=== PATIENT | female | born 1940 | race Caucasian/White ===

== ENCOUNTER 2020-01-08 05:59 | Day surgery (SDC) | payer MEDICARE, BC ==
[2020-01-08] MEDS ORDERED: Lactated Ringers 1,000 ML IV SCH (06:30)
[2020-01-08] MEDS ORDERED: DIPRIVAN 200 MG/20 ML IV ONE (07:39)
[2020-01-08 08:34] VITALS: O2SAT 97
--- NOTE | 2020-01-08 08:48 | OP ---
SURGERY DATE/TIME: 01/08/2020 0740 PREOPERATIVE DIAGNOSIS: Positive Cologuard. 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 PROCEDURE: Colonoscopy. SURGEON: Dr. Mayen. ANESTHESIA: MAC. Medications given by anesthesia department. HISTORY: The patient is a 79 year-old white female who presents now with a positive Cologuard. The patient is felt to need to have endoscopic evaluation. She was apprised of the risks of the procedure including the risk of perforation, phlebitis, untoward reaction to medication, bleeding and missed lesions. The patient verbalized her understanding and desired to have the procedure performed. DESCRIPTION OF PROCEDURE: The patient was given the medications by the anesthesia department. She had continuous pulse oximetry, ECG monitoring, intermittent blood pressure monitoring and tidal CO2 monitoring during the examination. She was placed in the left lateral decubitus position. A digital rectal examination was performed and revealed normal anal sphincter tone and no masses. Small internal hemorrhoids were noted. The flexible Olympus pediatric colonoscope was used to intubate the rectum. A view of the colon was developed sequentially to the cecum. There were noted to be two very small areas of arteriovenous malformations and one that measured approximately 1 cm in diameter. No other mucosal lesions being encountered. The scope was removed from the patient who tolerated the procedure well and was sent back to OP recovery in good condition. The prep was noted to be good.
[2020-01-08 08:59] VITALS: BP 146/82; PULSE 73
== END 2020-01-08 08:57 | disposition home or self-care (01) ==
LOC: SDC 05:59
PROVIDERS: ATTEND Family Medicine
DX: R19.5 Other fecal abnormalities (principal); Q27.33 Arteriovenous malformation of digestive system vessel; Z79.899 Other long term (current) drug therapy
CPT/HCPCS: 94250; J2704

== ENCOUNTER 2020-03-17 05:35 | Inpatient (IN) | payer MEDICARE, BC ==
[2020-03-17] MEDS ORDERED: solu-MEDROL 125 MG IV ONE (05:52)
[2020-03-17] MEDS ORDERED: DUONEB 0.5-3 MG/3 ml Neb IH ONE ×2 (05:52→05:55)
[2020-03-17 06:01] LABS: A-aADO2 84; ABG HEMOGLOBIN 13.9; ABG POTASSIUM 4.2 (3.5-5.1); ARTERIAL BLD GAS O2 SATURATION 97.8 % (95-100); ARTERIAL BLOOD GAS BASE EXCESS -4.6 (-2.0-2.0); ARTERIAL BLOOD GAS FIO2 32 %; ARTERIAL BLOOD GAS PCO2 46 mmHg (35-45); ARTERIAL BLOOD GAS PO2 87 mmHg (75-100); ARTERIAL BLOOD GAS pH 7.29 (7.35-7.45); CARBOXYHEMOGLOBIN 2.9 % THgb (0.0-6.9); HCO3- 22.1 (22-28); HGB O2 SAT 94.3 g/dF (94-100); Lactic Acid 1.4 (0.4-2.0); Methhemoglobin 0.7 % (1.4-1.5); paO2 pAO1 0.51
[2020-03-17 06:02] LABS: Hematocrit 43.9 % (35-47); Mean Cell Volume 92.6 fl (78-100); Mean Corpuscular Hemoglobin 29.5 pg (26-32); Mean Corpuscular Hgb Concent. 31.9 g/dl (32-36); Red Blood Count 4.74 M/mm3 (4.1-5.4); Red Cell Distribution Width 13.6 % (11.5-14.0); White Blood Count 5.9 K/mm3 (4.0-10.5)
[2020-03-17 06:02] LABS: ABG SITE RIGHT BRACHIAL
--- NOTE | 2020-03-17 06:02 | ERPHSYRPT ---
- History of Present Illness Time Seen by Provider: 03/17/20 05:44 Source: patient, EMS Exam Limitations: no limitations Patient Subjective Stated Complaint: SOB Triage Nursing Assessment: pt to ED by EMS c/o SOB intermittently x 2 weeks. uses inhaler PRN, has not had any relief today. pt brought in on 15L NRB by EMS. EMS reports pt was 60% RA at home. pt does not normally wear O2. denies CP. A&Ox3. lung sounds diminished throughout, noted heart murmur, cap refil < 3 sec. Physician History: 79 years old female with history of COPD, tobacco abuse presented in the ER via EMS with worsening shortness of breath. Patient report having shortness of breath off-and-on for the last 2-1/2 weeks which got worse all of a sudden this morning. When EMS arrived her oxygen saturation was in 60s, placed on nonrebreather and brought in the ER. Patient currently satting around 98% on nonrebreather and her distress seems to be relieving. She denies cough or sputum production. Denies any fever or chills. Has some chest tightness and pressure but denies any lower extremity swellings. No history of CHF. Denies any sick contact. Timing/Duration: week(s) (2) Activities at Onset: rest Severity of Dyspnea-Max: severe Severity of Dyspnea-Current: moderate Possible Cause: unknown cause Modifying Factors: Improves With: albuterol inhaler, coughing Associated Symptoms: cough, chest pain/discomfort, wheezing, productive cough, No fever, No ankle swelling, No lightheadedness, No leg swelling, No muscle spasms feet, No painful breathing Allergies/Adverse Reactions: No Known Drug Allergies Allergy (Verified 03/17/20 07:18) Home Medications: Aspirin 81 mg PO DAILY 01/01/20 [History] Carvedilol 12.5 mg [Coreg 12.5 mg] 12.5 mg PO BID 01/01/20 [History] Dicyclomine HCl 20 mg [Bentyl 20 mg] 20 mg PO ACHS 01/01/20 [History] Lisinopril 10 mg [Zestril 10 MG] 10 mg PO DAILY 01/01/20 [History] Loratadine 10 mg [Claritin 10 mg] 10 mg PO DAILY 01/01/20 [History] Vitamin A 8,000 unit PO DAILY 01/01/20 [History] Albuterol Common Canister [Ventolin Common Canister] 2 puff IH Q4H PRN PRN 01/08/20 [History] Cholecalciferol (Vitamin D3) [Vitamin D] 3,000 unit PO DAILY 03/17/20 [ History] Glucosamine Sulfate Dipot Chlr [Glucosamine] 3,000 mg PO DAILY 03/17/20 [History ] Multivitamin W-Minerals/Lutein [Centrum Silver Tablet] 1 each PO DAILY 03/17/20 [History] Hx Tetanus, Diphtheria Vaccination/Date Given: No Hx Influenza Vaccination/Date Given: Yes Hx Pneumococcal Vaccination/Date Given: Yes Immunizations Up to Date: Yes Travel Risk - International Travel Have you traveled outside of the country in past 3 weeks: No Have you or anyone close to you been diagnosed with or: No Do your reside in a community with a known COVID-19 case?: Yes If Yes where:: [place] - Coronavirus Screening Has patient experienced Coronavirus symptoms: Yes Symptoms experienced: respiratory symptoms (i.e.Cought,shortness of breath) Date of fever onset:: 03/17/20 Date of respiratory symptoms onset:: 03/17/20 - Review of Systems Constitutional: Fatigue Eyes: No Symptoms Ears, Nose, & Throat: No Symptoms Respiratory: Dyspnea, Wheezing Cardiac: No Edema, No Palpitations Abdominal/Gastrointestinal: No Symptoms Genitourinary Symptoms: No Symptoms Musculoskeletal: No Symptoms Skin: No Symptoms Neurological: No Symptoms Psychological: No Symptoms Endocrine: No Symptoms Hematologic/Lymphatic: No Symptoms Immunological/Allergic: No Symptoms - Past Medical History Pertinent Past Medical History: Yes Neurological History: No Pertinent History ENT History: No Pertinent History Cardiac History: Hypertension, Other Respiratory History: COPD Endocrine Medical History: No Pertinent History Musculoskeletal History: No Pertinent History GI Medical History: No Pertinent History History: No Pertinent History Psycho-Social History: No Pertinent History Female Reproductive Disorders: No Pertinent History Other Medical History: heart murmur - Past Surgical History Past Surgical History: No - Social History Smoking Status: Current every day smoker How long have you smoked: 1/2 Drug Use: none Patient Lives Alone: Yes - Nursing Vital Signs Nursing Vital Signs: Initial Vital Signs Temperature 97.7 F 03/17/20 05:38 Pulse Rate 105 H 03/17/20 05:38 Respiratory Rate 28 H 03/17/20 05:38 Blood Pressure 169/110 03/17/20 05:38 O2 Sat by Pulse Oximetry 98 03/17/20 05:38 Pain Scale Pain Intensity 0 - Physical Exam General Appearance: mild distress Eye Exam: eyes nml inspection Ears, Nose, Throat Exam: hearing grossly normal, pharyngeal erythema Neck Exam: normal inspection, non-tender, supple, full range of motion Respiratory Exam: diminished breath sounds, accessory muscle use, crackles/rales , rhonchi, wheezing, No chest tenderness Cardiovascular/Chest Exam: regular rate/rhythm, tachycardia Abdominal/Gastrointestinal Exam: soft, No tenderness Extremity Exam: non-tender, normal range of motion, normal inspection Neurologic Exam: alert, oriented x 3, cooperative Skin Exam: normal color SpO2 Interpretation: ABG ordered, O2 applied SpO2: 99 O2 Delivery: Non-rebreather - Course Nursing assessment & vital signs reviewed: Yes EKG Interpreted by Me: RATE (103), Sinus Tach, Right Mittie Deviation, LAFB, Right Bundle Branch Block, Other Ordered Tests: Medication Summary Discontinued Medications Generic Name Dose Route Start Last Admin Trade Name Freq PRN Reason Stop Dose Admin Acetaminophen 650 mg 03/17/20 11:21 Tylenol 325 Mg PO 04/16/20 11:20 Q4H PRN PRN PAIN AND/OR FEVER Albuterol/Ipratropium 3 ml 03/17/20 05:52 03/17/20 06:00 Duoneb 0.5-3 Mg/3 Ml Neb IH 03/17/20 05:53 3 ml STAT ONE Administration Albuterol/Ipratropium Confirm 03/17/20 05:55 Duoneb 0.5-3 Mg/3 Ml Neb Administered 03/17/20 05:56 Dose 3 ml IH .STK-MED ONE Albuterol/Ipratropium 3 ml 03/17/20 11:21 03/17/20 13:05 Duoneb 0.5-3 Mg/3 Ml Neb IH 04/16/20 11:20 Not Given Q6HRT HODA Aspirin 325 mg 03/17/20 08:30 03/17/20 10:14 Ecotrin 325 Mg PO 04/16/20 08:29 325 mg DAILY HODA Administration Aspirin 81 mg 03/18/20 10:00 03/19/20 07:42 Ecotrin 81 Mg PO 04/17/20 09:59 81 mg DAILY HODA Administration Carvedilol 12.5 mg 03/17/20 14:30 03/19/20 07:43 Coreg 12.5 Mg PO 04/16/20 14:29 12.5 mg BID HODA Administration Dicyclomine HCl 20 mg 03/17/20 16:30 03/19/20 07:42 Bentyl 20 Mg PO 04/16/20 16:29 20 mg ACHS HODA Administration Diphenoxylate HCl/Atropine 1 tablet 03/18/20 19:58 03/19/20 08:27 Lomotil PO 04/17/20 19:57 1 tablet Q4H PRN PRN Administration DIARRHEA Famotidine 20 mg 03/17/20 11:21 03/19/20 07:42 Pepcid 20 Mg Vial IV 04/16/20 11:20 20 mg Q12HT HODA Administration Furosemide 40 mg 03/17/20 06:44 03/17/20 07:07 Lasix 40 Mg/4 Ml IV 03/17/20 06:45 40 mg STAT ONE Administration Furosemide Confirm 03/17/20 07:00 Lasix 40 Mg/4 Ml Administered 03/17/20 07:01 Dose 40 mg .ROUTE .STK-MED ONE Furosemide 40 mg 03/17/20 17:00 03/19/20 07:43 Lasix 40 Mg PO 04/16/20 16:59 40 mg BID DIURETIC HODA Administration Ceftriaxone Sodium/Dextrose 2 g in 50 mls @ 100 mls/hr 03/17/20 06:44 09:13 Rocephin 2 Gm-D5w 50ml Bag IV 03/17/20 07:13 Infused STAT STA Infusion Azithromycin 500 mg in 250 mls @ 250 mls/hr 03/17/20 06:44 03/17/20 09:13 Zithromax 500 Mg/ 250 Ml Nacl Premix IV 03/17/20 07:43 Infused STAT STA Infusion Azithromycin Confirm 03/17/20 07:00 Zithromax 500 Mg/ 250 Ml Nacl Premix Administered 03/17/20 07:01 Dose 500 mg in 250 mls @ ud IV .STK-MED ONE Ceftriaxone Sodium/Dextrose Confirm 03/17/20 07:00 Rocephin 2 Gm-D5w 50ml Bag Administered 03/17/20 07:01 Dose 2 g in 50 mls @ ud IV .STK-MED ONE Azithromycin 500 mg in 250 mls @ 250 mls/hr 03/17/20 11:21 03/18/20 07:41 Zithromax 500 Mg/ 250 Ml Nacl Premix IV 04/16/20 11:20 Not Given Q24H10 HODA Ceftriaxone Sodium/Dextrose 1 g in 50 mls @ 100 mls/hr 03/17/20 11:21 07:41 Rocephin 1 Gm-D5w 50 Ml Bag IV 04/16/20 11:20 Not Given Q24H10 HODA Insulin Human Lispro 0 unit 03/17/20 11:21 Humalog SQ 04/16/20 11:20 UD PRN HYPERGLYCEMIA Lisinopril 10 mg 03/17/20 14:30 03/19/20 07:42 Zestril 10 Mg PO 04/16/20 14:29 10 mg DAILY HODA Administration Loratadine 10 mg 03/18/20 10:00 03/19/20 07:43 Claritin 10 Mg PO 04/17/20 09:59 10 mg DAILY HODA Administration Lorazepam 1 mg 03/17/20 14:30 03/19/20 05:33 Ativan 1 Mg PO 04/16/20 14:29 Not Given Q8HT HODA Methylprednisolone Sodium Succinate 80 mg 03/17/20 05:52 03/17/20 06:14 Solu-Medrol 125 Mg IV 03/17/20 05:53 80 mg STAT ONE Administration Methylprednisolone Sodium Succinate Confirm 03/17/20 06:12 Solu-Medrol 125 Mg Administered 03/17/20 06:13 Dose 125 mg .ROUTE .STK-MED ONE Metoclopramide HCl 10 mg 03/17/20 07:30 03/17/20 10:14 Reglan 10 Mg/2 Ml IV 03/17/20 07:31 10 mg STAT ONE Administration Metoclopramide HCl Confirm 03/17/20 10:13 Reglan 10 Mg/2 Ml Administered 03/17/20 10:14 Dose 10 mg .ROUTE .STK-MED ONE Miscellaneous Information 0 each 03/17/20 13:00 Medication Intervention 04/16/20 12:59 .RN TO CHECK WITH PT HODA Nicotine 14 mg 03/17/20 19:15 03/18/20 16:00 Nicoderm Cq 14 Mg TOP 04/16/20 19:14 14 mg Q24H HODA Administration Nitroglycerin 1 gm 03/17/20 06:45 03/17/20 07:07 Nitro-Bid 2% Ud Packets TOP 03/17/20 06:46 1 gm STAT ONE Administration Nitroglycerin Confirm 03/17/20 07:00 Nitro-Bid 2% Ud Packets Administered 03/17/20 07:01 Dose 1 gm .ROUTE .STK-MED ONE Nitroglycerin Confirm 03/17/20 12:59 Nitrostat 0.4 Mg Tablet Administered 03/17/20 13:00 Dose 0.4 mg SL .STK-MED ONE Nitroglycerin 0.4 mg 03/17/20 14:23 03/17/20 15:32 Nitrostat 0.4 Mg Tablet SL 04/16/20 14:22 0.4 mg PRN PRN Administration Patient Own Med ( 2 each 03/17/20 11:33 Ventolin Mdi) IH 04/16/20 11:32 Q4HPRN PRN SHORTNESS OF BREATH/WHEEZING Potassium Chloride 10 meq 03/18/20 10:00 Klor Con 10 Meq PO 04/17/20 09:59 DAILY HODA Potassium Chloride 10 meq 03/17/20 17:15 03/19/20 07:42 Klor Con 10 Meq PO 04/16/20 17:14 10 meq TID HODA Administration Sodium Chloride 10 ml 03/17/20 22:00 03/19/20 07:43 Sodium Chloride 0.9% 10 Ml Flush Syringe IV 04/16/20 21:59 10 ml Q8HT HODA Administration Lab/Rad Data: Laboratory Result Diagrams 03/17/20 06:00 03/17/20 06:00 Laboratory Results 03/17/20 03/17/20 03/17/20 Range/Units 10:30 06:00 06:00 WBC (4.0-10.5) K/mm3 RBC (4.1-5.4) M/mm3 Hgb (12.0-16.0) gm/dl Hct (35-47) % MCV (78-100) fl MCH (26-32) pg MCHC (32-36) g/dl RDW (11.5-14.0) % Plt Count (150-450) K/mm3 MPV (7.5-11.0) fl Segmented Neutrophils (36.0-66.0) % Lymphocytes (Manual) (24-44) % Monocytes (Manual) (0.0-12.0) % Atypical Lymphocytes % Platelet Estimate (NORMAL) RBC Morphology Puncture Site pCO2 (35-45) mmHg pO2 (75-100) mmHg Base Excess (-2.0-2.0) O2 Saturation (94-100) g/dF ABG pH (7.35-7.45) ABG HCO3 (22-28) ABG O2 Sat (Measured) (95-100) % Simon Test A-a Gradient a/A Ratio Hemoglobin Carboxyhemoglobin (0.0-6.9) % THgb Methemoglobin (1.4-1.5) % Potassium 4.4 (3.5-5.1) Temperature C POC O2 Flow Rate % Sodium 139 (137-145) mmol/L Chloride 111 H (98-107) mmol/L Carbon Dioxide 21 L (22-30) mmol/L Anion Gap 11.7 (5-15) MEQ/L BUN 13 (7-17) mg/dL Creatinine 0.94 (0.52-1.04) mg/dL Estimated GFR > 60.0 ML/MIN Glucose 243 H (74-106) mg/dL Lactic Acid (0.4-2.0) Calcium 8.5 (8.4-10.2) mg/dL Magnesium 1.8 (1.6-2.3) mg/dL Total Bilirubin 0.50 (0.2-1.3) mg/dL AST 60 H (14-36) U/L ALT 39 H (0-35) U/L Alkaline Phosphatase 59 (38-126) U/L Troponin I 0.012 (0.000-0.034) ng/mL NT-Pro-B Natriuret Pep 5320 H (0-1800) pg/mL Serum Total Protein 5.8 L (6.3-8.2) g/dL Albumin 3.1 L (3.5-5.0) g/dL COVID-19 (CINDY) SEE SEPARATE REPORT 03/17/20 03/17/20 Range/Units 06:00 05:58 WBC 5.9 (4.0-10.5) K/mm3 RBC 4.74 (4.1-5.4) M/mm3 Hgb 14.0 (12.0-16.0) gm/dl Hct 43.9 (35-47) % MCV 92.6 (78-100) fl MCH 29.5 (26-32) pg MCHC 31.9 L (32-36) g/dl RDW 13.6 (11.5-14.0) % Plt Count 51 L (150-450) K/mm3 MPV 12.0 H (7.5-11.0) fl Segmented Neutrophils 58 (36.0-66.0) % Lymphocytes (Manual) 36 (24-44) % Monocytes (Manual) 3 (0.0-12.0) % Atypical Lymphocytes 3 % Platelet Estimate DECREASED (NORMAL) RBC Morphology NORMAL Puncture Site RIGHT BRACHIAL pCO2 46 H (35-45) mmHg pO2 87 (75-100) mmHg Base Excess -4.6 L (-2.0-2.0) O2 Saturation 94.3 (94-100) g/dF ABG pH 7.29 L (7.35-7.45) ABG HCO3 22.1 (22-28) ABG O2 Sat (Measured) 97.8 (95-100) % Simon Test NOT APPLICABLE A-a Gradient 84 a/A Ratio 0.51 Hemoglobin 13.9 Carboxyhemoglobin 2.9 (0.0-6.9) % THgb Methemoglobin 0.7 L (1.4-1.5) % Potassium 4.2 (3.5-5.1) Temperature 37.0 C POC O2 Flow Rate 32 % Sodium (137-145) mmol/L Chloride (98-107) mmol/L Carbon Dioxide (22-30) mmol/L Anion Gap (5-15) MEQ/L BUN (7-17) mg/dL Creatinine (0.52-1.04) mg/dL Estimated GFR ML/MIN Glucose (74-106) mg/dL Lactic Acid 1.4 (0.4-2.0) Calcium (8.4-10.2) mg/dL Magnesium (1.6-2.3) mg/dL Total Bilirubin (0.2-1.3) mg/dL AST (14-36) U/L ALT (0-35) U/L Alkaline Phosphatase (38-126) U/L Troponin I (0.000-0.034) ng/mL NT-Pro-B Natriuret Pep (0-1800) pg/mL Serum Total Protein (6.3-8.2) g/dL Albumin (3.5-5.0) g/dL COVID-19 (CINDY) - Progress Progress: improved, re-examined Air Movement: fair Progress Note: 03/17/20 06:58 79 years old is evaluated in the ER for respiratory distress. Patient is given DuoNeb and steroid, on reevaluation patient is still tachypneic and mildly tachycardic and using accessory muscles. She is placed on BiPAP. Chest x-ray showed congestion with right lower lobe pneumonia. She is given a dose of Lasix and Nitropaste along with antibiotics. Work-up showed normal white count and lactate, mildly acidotic with pH 7.29. I believe patient has a combination of CHF/COPD exacerbation and pneumonia. Discussed with Dr. Milan and patient is admitted. Blood Culture(s) Obtained: Yes Antibiotics given: Yes Will see patient in: hospital (full admit) Counseled pt/family regarding: lab results, diagnosis, rad results, smoking cessation - Departure Departure Disposition: In-patient Admission Clinical Impression: Suspected COVID-19 virus infection Heart failure Qualifiers: Heart failure type: unspecified Heart failure chronicity: acute Qualified Code( s): I50.9 - Heart failure, unspecified COPD (chronic obstructive pulmonary disease) Qualifiers: COPD type: unspecified COPD Qualified Code(s): J44.9 - Chronic obstructive pulmonary disease, unspecified Condition: Stable Critical Care Time: Yes Critical Care Time(excluding separately billable procedures): Critical 30-74 mins
[2020-03-17] MEDS ORDERED: solu-MEDROL 125 MG ONE (06:12)
[2020-03-17 06:20] LABS: ALBUMIN 3.1 g/dL (3.5-5.0); ALKALINE PHOSPHATASE 59 U/L (38-126); ANION GAP 11.7 MEQ/L (5-15); BLOOD UREA NITROGEN 13 mg/dL (7-17); CHLORIDE 111 mmol/L (98-107); Calcium 8.5 mg/dL (8.4-10.2); Carbon Dioxide 21 mmol/L (22-30); Creatinine 1 0.94 mg/dL (0.52-1.04); Glucose 243 mg/dL (74-106); MAGNESIUM 1.8 mg/dL (1.6-2.3); NT PRO BNP 5320 pg/mL (0-1800); Potassium 4.4 mmol/L (3.5-5.1); SGOT/AST 60 U/L (14-36); SGPT/ALT 39 U/L (0-35); SODIUM 139 mmol/L (137-145); Total Protein 5.8 g/dL (6.3-8.2)
[2020-03-17] MEDS ORDERED: Lasix 40 MG/4 ML IV ONE (06:44)
[2020-03-17] MEDS ORDERED: Zithromax 500 MG/ 250 ML NaCl Premix 500 MG/250 ML IVPB IV STA (06:44)
[2020-03-17] MEDS ORDERED: ROCEPHIN 2 Gm-D5w 50ML BAG** 2 G/50 ML IVPB IV STA (06:44)
[2020-03-17] MEDS ORDERED: NITRO-BID 2% UD PACKETS TOP ONE (06:45)
[2020-03-17] MEDS ORDERED: Zithromax 500 MG/ 250 ML NaCl Premix 500 MG/250 ML IVPB IV ONE (07:00)
[2020-03-17] MEDS ORDERED: ROCEPHIN 2 Gm-D5w 50ML BAG** 2 G/50 ML IVPB IV ONE (07:00)
[2020-03-17] MEDS ORDERED: Lasix 40 MG/4 ML ONE (07:00)
[2020-03-17] MEDS ORDERED: NITRO-BID 2% UD PACKETS ONE (07:00)
[2020-03-17 07:29] LABS: ATYPICAL LYMPHS 3 %; Lymphocytes 36 % (24-44); Monocyte 3 % (0.0-12.0); Neutrophils 58 % (36.0-66.0); Total Cells Counted 100
[2020-03-17] MEDS ORDERED: Reglan 10 MG/2 ML IV ONE (07:30)
[2020-03-17 07:31] LABS: Platelet Estimate DECREASED (NORMAL)
[2020-03-17 07:33] LABS: Platelet Count 51 K/mm3 (150-450)
[2020-03-17] MEDS ORDERED: Ecotrin 325 MG PO SCH (08:30)
--- NOTE | 2020-03-17 08:58 | XRAY ---
Indication: Short of breath. Comparison: None Portable chest demonstrates cardiomegaly, mild pulmonary edema, and small bibasilar effusions favoring cardiac decompensation. Mild right base infiltrate versus atelectasis, possible superimposed pneumonia. Bony thorax intact with mild osteopenia.
[2020-03-17] MEDS ORDERED: ECOTRIN 81 MG PO SCH (10:00)
[2020-03-17] MEDS ORDERED: Reglan 10 MG/2 ML ONE (10:13)
[2020-03-17] MEDS ORDERED: DUONEB 0.5-3 MG/3 ml Neb IH SCH (11:21)
[2020-03-17] MEDS ORDERED: HUMALOG SQ PRN (11:21)
[2020-03-17] MEDS ORDERED: Zithromax 500 MG/ 250 ML NaCl Premix 500 MG/250 ML IVPB IV SCH (11:21)
[2020-03-17] MEDS ORDERED: ROCEPHIN 1 Gm-D5w 50 ml Bag** 1 G/50 ML IVPB IV SCH (11:21)
[2020-03-17] MEDS ORDERED: TYLENOL 325 MG PO PRN (11:21)
[2020-03-17] MEDS ORDERED: PATIENT OWN MEDICATION IH PRN (11:33)
[2020-03-17] MEDS ORDERED: Nitrostat 0.4 MG Tablet SL ONE (12:59)
[2020-03-17] MEDS ORDERED: MEDICATION INTERVENTION MC SCH (13:00)
[2020-03-17] MEDS: Nitrostat 0.4 MG Tablet SL PRN ×5 (13:05→15:32)
[2020-03-17] MEDS: Zestril 10 MG PO SCH (14:35)
[2020-03-17] MEDS: COREG 12.5 MG PO SCH ×2 (14:35→23:20)
[2020-03-17] MEDS: Ativan 1 MG PO SCH ×2 (14:35→23:20)
[2020-03-17 15:04] LABS: ANION GAP 12.1 MEQ/L (5-15); MAGNESIUM 1.8 mg/dL (1.6-2.3); Potassium 3.3 mmol/L (3.5-5.1)
[2020-03-17] MEDS: Pepcid 20 MG VIAL IV SCH ×2 (15:18→23:19)
[2020-03-17] MEDS: BENTYL 20 MG PO SCH ×2 (17:10→23:20)
[2020-03-17] MEDS: Lasix 40 MG PO SCH (17:10)
[2020-03-17] MEDS: Klor Con 10 MEQ PO SCH ×2 (17:12→23:20)
[2020-03-17] MEDS: NICODERM CQ 14 MG TOP SCH (23:22)
[2020-03-17] MEDS: Sodium Chloride 0.9% 10 ML FLUSH Syringe IV SCH (23:45)
[2020-03-18 05:14] LABS: Absolute Neutrophil Ct (ANC) 7.55 (1.4-6.9); BASOPHIL % 0.1 % (0.0-0.4); Basophil (Absolute #) 0.01 (0-0.4); Eosinophil (Absolute #) 0 (0-0.5); Hematocrit 42.7 % (35-47); Hemoglobin 13.8 gm/dl (12.0-16.0); Lymphocyte (Absolute #) 2.24 (1.0-4.6); Lymphocytes % 21.1 % (24.0-44.0); Mean Cell Volume 91.2 fl (78-100); Mean Corpuscular Hemoglobin 29.5 pg (26-32); Mean Corpuscular Hgb Concent. 32.3 g/dl (32-36); Mean Platelet Volume 11.9 fl (7.5-11.0); Monocyte (Absolute #) 0.83 (0.0-1.3); Monocytes % 7.8 % (0.0-12.0); Platelet Count 42 K/mm3 (150-450); Red Blood Count 4.68 M/mm3 (4.1-5.4); Red Cell Distribution Width 13.4 % (11.5-14.0); White Blood Count 10.6 K/mm3 (4.0-10.5)
[2020-03-18 05:38] LABS: ALBUMIN 3.3 g/dL (3.5-5.0); BILIRUBIN,TOTAL 0.6 mg/dL (0.2-1.3); Calcium 8.9 mg/dL (8.4-10.2); Creatinine 1 0.96 mg/dL (0.52-1.04); Potassium 3.7 mmol/L (3.5-5.1)
[2020-03-18] MEDS: Sodium Chloride 0.9% 10 ML FLUSH Syringe IV SCH ×3 (05:57→21:13)
[2020-03-18] MEDS: Ativan 1 MG PO SCH ×4 (06:14→21:11)
[2020-03-18] MEDS: Pepcid 20 MG VIAL IV SCH ×2 (07:48→21:12)
[2020-03-18] MEDS: COREG 12.5 MG PO SCH ×2 (07:48→21:11)
[2020-03-18] MEDS: BENTYL 20 MG PO SCH ×4 (07:48→21:11)
[2020-03-18] MEDS: Lasix 40 MG PO SCH ×2 (07:48→16:00)
[2020-03-18] MEDS: Klor Con 10 MEQ PO SCH ×3 (07:48→21:11)
[2020-03-18] MEDS: Zestril 10 MG PO SCH (07:49)
[2020-03-18] MEDS: ECOTRIN 81 MG PO SCH (08:48)
[2020-03-18] MEDS: CLARITIN 10 MG PO SCH (08:48)
[2020-03-18 09:11] LABS: Slide Review 1 YES
[2020-03-18] MEDS ORDERED: VITAMIN A 8000 UNIT PO SCH (10:00)
[2020-03-18] MEDS ORDERED: Klor Con 10 MEQ PO SCH (10:00)
[2020-03-18] MEDS ORDERED: NON-FORMULARY ITEM (Aspirin [Aspirin] 81 MG) PO SCH (10:00)
--- NOTE | 2020-03-18 13:24 | HP ---
CHIEF COMPLAINT: Extreme shortness of breath. HISTORY OF PRESENT ILLNESS: The patient is a 79 year-old white female who lives with her son and . She has known chronic obstructive pulmonary disease. She went to bed feeling a little short of breath and woke up at 0100 hours and could not get her breath. She had no severe cough. Chest was bearing down on her. She has never had a feeling like this before and brought to the emergency room. At that time she was really hypoxic needing 100% oxygen and was put on multiple nebulizer treatments and BiPAP machine. She has been self-isolating very strictly and has not been exposed to any outside people. Everyone else at home is without acute illnesses. She has known history of heart disease but no heart failure. Apparently she sees Dr. Ross every three months for hypertension. While in the emergency room, they treated her for four to five hours with BiPAP, Lasix and O2 and finally brought her pO2 into the low 90's and got some relief. Currently she is smoking about a half pack a day after smoking for entire adult life. SOCIAL HISTORY: The patient is , has one son and two daughters. She worked here as an aide for many years. A very pleasant person. PHYSICAL EXAMINATION: VITAL SIGNS: Temperature 97F, pulse 100, respirations 20, blood pressure 160/100. O2 saturations now 98%. HEENT: Slightly hard of hearing. Sees okay. CHEST: Presently very short of breath, normally mildly short of breath. CVS: She is having some dull chest pain just heaviness that she does not usually have. ABDOMEN: Soft, no masses. No organomegaly. Not obese. EXTREMITIES: Thin. Feet are cool with good pulses. HOSPITAL COURSE: The patient was stabilized in the emergency room and brought to the COVID Unit to rule out COVID. Blood test was sent off. When I saw her she was still in some heart failure. She gets very anxious, having some runs of trigeminy and just PVC's. EKG's did not change the left anterior vesicular block, right bundle branch block. Troponins were just mildly elevated and went down with the second one. She diuresed over 4,000 cc over two days. She received one dose of Rocephin in the emergency room and that was disconnected. She got to the floor with really no signs of heart failure. She was placed on STAT Solu-Medrol however that was discontinued also as she really was not wheezing by the time I saw her. Her electrolytes were all normal because of the large diuresis. I checked her sodium, magnesium, potassium. The potassium was moderately low at 3.1 and we started oral potassium. IMPRESSION: 1) Acute heart failure. 2) Chronic obstructive pulmonary disease. 3) Possible COVID. PLAN: Continue diuresis, beta blockers, RADHA inhibitors, potassium and her home medicines and await the COVID test. The patient seems to be improving and her prognosis from the heart failure is good.
[2020-03-18] MEDS: NICODERM CQ 14 MG TOP SCH (16:00)
[2020-03-18] MEDS ORDERED: Lomotil PO PRN (19:58)
[2020-03-19] MEDS: Ativan 1 MG PO SCH (05:33)
[2020-03-19 05:48] LABS: Absolute Neutrophil Ct (ANC) 3.82 (1.4-6.9); BASOPHIL % 0.3 % (0.0-0.4); Basophil (Absolute #) 0.02 (0-0.4); Eosinophil % 0.8 % (0.00-5.0); Eosinophil (Absolute #) 0.06 (0-0.5); Hematocrit 43.6 % (35-47); Hemoglobin 14.2 gm/dl (12.0-16.0); Lymphocyte (Absolute #) 2.66 (1.0-4.6); Lymphocytes % 37.3 % (24.0-44.0); Mean Cell Volume 91.4 fl (78-100); Mean Corpuscular Hemoglobin 29.8 pg (26-32); Mean Corpuscular Hgb Concent. 32.6 g/dl (32-36); Mean Platelet Volume 12.2 fl (7.5-11.0); Monocyte (Absolute #) 0.58 (0.0-1.3); Monocytes % 8.1 % (0.0-12.0); Neutrophil % 53.5 % (36.0-66.0); Red Blood Count 4.77 M/mm3 (4.1-5.4); Red Cell Distribution Width 13.7 % (11.5-14.0); White Blood Count 7.1 K/mm3 (4.0-10.5)
[2020-03-19 05:54] LABS: ALBUMIN 3.2 g/dL (3.5-5.0); ALKALINE PHOSPHATASE 53 U/L (38-126); ANION GAP 9.1 MEQ/L (5-15); BLOOD UREA NITROGEN 21 mg/dL (7-17); CHLORIDE 105 mmol/L (98-107); Calcium 8.9 mg/dL (8.4-10.2); Carbon Dioxide 29 mmol/L (22-30); Creatinine 1 0.88 mg/dL (0.52-1.04); Glucose 95 mg/dL (74-106); Potassium 3.8 mmol/L (3.5-5.1); SGOT/AST 27 U/L (14-36); SGPT/ALT 29 U/L (0-35); SODIUM 139 mmol/L (137-145); Total Protein 5.9 g/dL (6.3-8.2)
[2020-03-19 06:39] LABS: Platelet Count 75 K/mm3 (150-450)
[2020-03-19 06:52] LABS: Slide Review 1 YES
[2020-03-19] MEDS: Pepcid 20 MG VIAL IV SCH (07:42)
[2020-03-19] MEDS: Klor Con 10 MEQ PO SCH (07:42)
[2020-03-19] MEDS: BENTYL 20 MG PO SCH (07:42)
[2020-03-19] MEDS: ECOTRIN 81 MG PO SCH (07:42)
[2020-03-19] MEDS: Zestril 10 MG PO SCH (07:42)
[2020-03-19] MEDS: Lasix 40 MG PO SCH (07:43)
[2020-03-19] MEDS: CLARITIN 10 MG PO SCH (07:43)
[2020-03-19] MEDS: Sodium Chloride 0.9% 10 ML FLUSH Syringe IV SCH (07:43)
[2020-03-19] MEDS: COREG 12.5 MG PO SCH (07:43)
[2020-03-19 07:53] VITALS: BP 128/65
[2020-03-19 10:18] VITALS: PULSE 97
--- NOTE | 2020-03-19 11:18 | DS ---
ADMISSION DIAGNOSES: 1) Congestive heart failure. 2) Respiratory distress. 3) COVID possible. 4) Chronic obstructive pulmonary disease. 5) Cough. DISCHARGE DIAGNOSIS: 1) ACUTE CONGESTIVE HEART FAILURE. 2) CORONARY ARTERY DISEASE. 3) CHRONIC OBSTRUCTIVE PULMONARY DISEASE. See dictated history and physical. HOSPITAL COURSE: The patient was very short of breath, waking up at 0100 hours much worse than usual. She has never had heart failure before. She denied any chest pain until she got to the COVID Unit. In the emergency room, she was stabilized with BiPAP, Lasix, oxygen and was given 1 gm of Rocephin for possible pneumonia. During her hospital stay really after being here for four hours she was less short of breath. Ativan for anxiety. She had some substernal pain but it was right after she got on the unit and the Ativan stopped that. Enzymes were initially very mildly elevated and then it came down to normal. She had some ventricular ectopy which straightened out with time. O2 saturations were 89% on room air all night. She diuresed 4,000 cc in two days. The second day she was weak but without severe shortness of breath and without any pain or cough. She was discharged home to continue on her home medicines plus Lasix 40 mg q.d., potassium 10 q.d. Follow up with her second time worker, Dr. Ross. I think she said she had an appointment with him soon. I am not for sure how he's doing his office with [facility]. Continue on inhaler and medicines including aspirin 81 mg q.d., carvedilol 12.5 mg b.i.d., vitamin D3 3,000 units q.d., Bentyl 20 a.c. and h.s. PRN irritable bowel, glucosamine 3,000 mg daily, lisinopril 10 mg q.d., loratadine 10 mg PRN, multiple vitamin q.d., vitamin A 8,000 q.d. supplement. PROGNOSIS: Good. She is to return for shortness of breath, fever or chest pain.
[2020-03-24 08:28] VITALS: O2SAT 99
== END 2020-03-19 11:13 | disposition home or self-care (01) | DRG 293 ==
LOC: ED 05:35 → MERGE 05:35 → EDBD 05:35 → MED SURG 10:39
PROVIDERS: ADMIT Family Medicine; ATTEND Family Medicine
DX: I11.0 Hypertensive heart disease with heart failure (principal); I50.9 Heart failure, unspecified; I25.10 Atherosclerotic heart disease of native coronary artery without angina pectoris; J44.9 Chronic obstructive pulmonary disease, unspecified; R05 Cough; F41.9 Anxiety disorder, unspecified; R53.1 Weakness; R09.02 Hypoxemia; F17.210 Nicotine dependence, cigarettes, uncomplicated; Z79.899 Other long term (current) drug therapy
CPT/HCPCS: 36415; 80051; 80053; 82375; 82803; 83036; 83605; 83735; 83880; 84484; 85025; 87040; 93005; 93041; 94640; 94762; 96365; 96368; 96374; 96375; 99291; U0002; 36000; 36600; 71045; 94002; 99285; J0456; J0696; J1940; J2930; A9270-GY

== ENCOUNTER 2024-12-15 09:39 | Emergency (ER) | payer MEDICARE ==
[2024-12-15 09:54] VITALS: TEMP 97.6
[2024-12-15] MEDS ORDERED: NORCO 5/325 MG ONE (11:02)
[2024-12-15] MEDS: NORCO 5/325 MG PO ONE (11:05)
[2024-12-15 11:15] VITALS: PULSE 55; RESP 16; O2SAT 98
--- NOTE | 2024-12-15 11:31 | ERPHSYRPT ---
- History of Present Illness Time Seen by Provider: 12/15/24 09:39 Source: patient, family Exam Limitations: no limitations Patient Subjective Stated Complaint: pt was stepping up on a step and grabbing a hand rail at the same time but missed the rail and it caused her to fall backwards and injured her left upper arm Triage Nursing Assessment: Pt brought to the ER by her son, hypertensive, rates pain as 10/10, pulses normal, skin n/w/d, bruising on left upper lateral arm, severe pain with movement, denies hitting head, denies LOC, denies N&V, doesn't appear to be in any distress Physician History: 84 years old female with history of hypertension, diabetes mellitus, COPD presented in the ER with complains of left shoulder pain after she tripped on a stool and fell on the left shoulder. Patient has bruising and difficulty movements of left shoulder since last night after she fell. No numbness tingling or weakness of left upper extremity. Did not hit her head, no loss of consciousness. No chest pain. Pain is exacerbated with minimal movements of the right shoulder and also has swelling of shoulder. Allergies/Adverse Reactions: No Known Drug Allergies Allergy (Verified 12/15/24 09:54) Home Medications: Aspirin 81 mg PO DAILY 01/01/20 [History] Carvedilol 12.5 mg [Coreg 12.5 mg] 12.5 mg PO BID 01/01/20 [History] Loratadine 10 mg [Claritin 10 mg] 10 mg PO DAILY 01/01/20 [History] Glucosamine Sulfate Dipot Chlr [Glucosamine] 3,000 mg PO DAILY 03/17/20 [History] Acetaminophen 325 mg [Tylenol 325 mg] 650 mg PO Q8H PRN PRN 12/15/24 [History] Furosemide 40 mg [Lasix 40 MG] 20 mg PO DAILY 12/15/24 [History] Metformin HCl 500 mg [Glucophage 500 MG] 500 mg PO BIDWM 12/15/24 [History] Rosuvastatin Calcium 10 mg PO DAILY 12/15/24 [History] Sacubitril/Valsartan [Entresto 24 mg-26 mg Tablet] 1 tab PO BID 12/15/24 [History] Vit C/E/Cuperic/Zinc/Lutein [Preservision Lutein Softgel] 1 each PO BID 12/15/24 [History] Hx Tetanus, Diphtheria Vaccination/Date Given: No Hx Influenza Vaccination/Date Given: Yes Hx Pneumococcal Vaccination/Date Given: Yes Travel Risk - International Travel Have you traveled outside of the country in past 3 weeks: No - Emerging Infectious Disease Are you exhibiting symptoms associated with any current EIDs: No - Review of Systems Constitutional: No Symptoms Ears, Nose, & Throat: No Symptoms Respiratory: No Symptoms Cardiac: No Symptoms Abdominal/Gastrointestinal: No Symptoms Musculoskeletal: Fall, Injury, Joint Pain, Joint Swelling Skin: No Symptoms Neurological: No Symptoms Endocrine: No Symptoms Hematologic/Lymphatic: No Symptoms - Past Medical History Pertinent Past Medical History: Yes Neurological History: No Pertinent History, TIA ENT History: No Pertinent History Cardiac History: Arrhythmia, High Cholesterol, Hypertension, Other Respiratory History: COPD Endocrine Medical History: No Pertinent History Musculoskeletal History: No Pertinent History GI Medical History: No Pertinent History History: No Pertinent History Psycho-Social History: No Pertinent History Female Reproductive Disorders: No Pertinent History Other Medical History: heart murmur - Past Surgical History Past Surgical History: Yes Neuro Surgical History: No Pertinent History Cardiac: Cardiac Catheterization Respiratory: No Pertinent History Gastrointestinal: No Pertinent History Genitourinary: No Pertinent History Musculoskeletal: No Pertinent History Female Surgical History: No Pertinent History - Social History Smoking Status: Former smoker Exposure to second hand smoke: No Drug Use: none - Social Determinants of Health Will the patient participate in the screening: Yes Do you worry about a steady place to live?: No Do you have any problems with any of the following?: No known problems In the past 12 months,have you had to go without utilities?: No Transportation Issues: No Has anyone in your support network made you feel unsafe?: No Have you or anyone in your house had to go w/o enough food: No - Nursing Vital Signs Nursing Vital Signs: Initial Vital Signs Temperature 97.6 F 12/15/24 09:47 Pulse Rate 79 12/15/24 09:47 Blood Pressure 157/61 12/15/24 09:47 O2 Sat by Pulse Oximetry 97 12/15/24 09:47 Pain Scale Pain Intensity 10 - Physical Exam General Appearance: no apparent distress Eyes, Ears, Nose, Throat Exam: normal ENT inspection Neck Exam: normal inspection, non-tender, supple, full range of motion Cardiovascular/Respiratory Exam: chest non-tender, normal breath sounds, regular rate/rhythm Abdominal Exam: non-tender, soft Back Exam: normal inspection, normal range of motion Shoulder Exam: bone tenderness, limited ROM, pain, soft tissue tenderness Elbow/Forearm Exam: normal inspection, non-tender, no evidence of injury Wrist Exam: normal inspection, non-tender, no evidence of injury, normal ROM Hand Exam: normal inspection, non-tender, no evidence of injury, normal ROM Neuro/Tendon Exam: normal sensation, normal motor functions Mental Status Exam: alert, oriented x 3, cooperative Skin Exam: normal color SpO2 Interpretation: normal SpO2: 98 O2 Delivery: Room Air Ordered Tests: Active Orders 24 hr Category Date Time Status SHOULDER Stat Exams 12/15/24 10:02 Taken Medication Summary Discontinued Medications Generic Name Dose Route Start Last Admin Trade Name Jessica PRN Reason Stop Dose Admin Hydrocodone Bitart/Acetaminophen 1 tab 12/15/24 10:02 12/15/24 11:05 Hydrocodone/Apap 5/325 1 Tab Tablet PO 12/15/24 10:03 1 tab STAT ONE Administration Hydrocodone Bitart/Acetaminophen Confirm 12/15/24 11:02 Hydrocodone/Apap 5/325 1 Tab Tablet Administered 12/15/24 11:03 Dose 1 tab .ROUTE .STK-MED ONE - Progress Progress: improved, pain not gone completely, re-examined Progress Note: 12/15/24 11:24 84-year-old is evaluated in the ER for fall with injury to the left shoulder. Patient fell off of a small step. Did not hit her head, no LOC. No injury anywhere else. Has tenderness swelling left shoulder with restricted range of motion. I have given her [place] for symptomatic relief, x-ray shoulder showed impacted surgical neck fracture with no dislocation reviewed by me, official report is pending, I have shared imaging and history with Dr. Chinchilla, recommended sling application and outpatient follow-up with orthopedics on Tuesday. Distant sling/shoulder immobilizer. I have shared the results of workup with patient and family and plan of treatment and outpatient follow-up which they seem understanding. Stable for discharge. Discussed with Dr.: Other (Dr. Chinchilla orthopedics) Counseled pt/family regarding: diagnosis, need for follow-up, rad results Medical Desision Making - Independent Historian Additional History obtained from: Child - Discussion of managment Care discussed with:: specialist ([facility]) Reviewed:: Test results Agreed on:: Treatment plan, need for follow-up Will see patient: In office - Diagnostic Testing Diagnostic test were ordered, analyzed, and reviewed by me: Yes Radiological Interpretation: Interpreted by me, Reviewed by me - Risk of complications The pt has a mod risk of morbidity or mortality based on: Need for prescription drug management - Departure Departure Disposition: Home Clinical Impression: Shoulder fracture, left Condition: Stable Critical Care Time: No Referrals: ROD HOLLINGSWORTH [Primary Care Provider] - Follow up with PCP 1 day FRANCHESKA CHINCHILLA DO [ACTIVE STAFF] - Follow up/PCP as directed (Tuesday for reevaluation) Instructions: Shoulder Fracture (DC) Additional Instructions: Avoid exertional activities. Take pain medications as needed. Follow-up with orthopedics for reevaluation on Tuesday. Return to ER for any worsening. Prescriptions: Hydrocodone/Acetaminophen [Hydrocodone-Acetamin 5-325 mg] 1 tab PO Q6HPRN PRN 3 Days #12 tablet MDD 4 PRN Reason: Pain
[2024-12-15 11:32] VITALS: BP 163/76
--- NOTE | 2024-12-15 23:33 | XRAY ---
Indication: Status post fall. Comparison: None 3 view left shoulder demonstrates impacted comminuted humeral head/neck fracture with effusion. Elsewhere osteopenia, mild multilevel thoracic degenerative spondylosis, and aortic calcifications.
== END 2024-12-15 11:48 | disposition home or self-care (01) ==
LOC: ED 09:39
DX: S42.212A Unspecified displaced fracture of surgical neck of left humerus, initial encounter for closed fracture (principal); W01.0XXA Fall on same level from slipping, tripping and stumbling without subsequent striking against object, initial encounter; E78.5 Hyperlipidemia, unspecified; I10 Essential (primary) hypertension; Z79.891 Long term (current) use of opiate analgesic; Z79.84 Long term (current) use of oral hypoglycemic drugs; Z79.899 Other long term (current) drug therapy
CPT/HCPCS: 73030; 99283; L3650; A9270-GY

== ENCOUNTER 2025-03-02 07:25 | Observation (INO) | payer MEDICARE ==
--- NOTE | 2025-03-02 07:41 | ERPHSYRPT ---
- History of Present Illness Time Seen by Provider: 03/02/25 07:40 Source: patient, EMS, old records Exam Limitations: no limitations Physician History: This is an 84-year-old white female patient of Dr. Mayen who presents to the emergency department transported by the paramedics secondary to waking up at approximately 515 this morning sweating and feeling very dizzy. She denies chest pain and she denies shortness of breath. The paramedics arrived and found the patient to be in atrial fibrillation with RVR and a heart rate of 180 bpm and they provided the patient with 10 mg of intravenous Cardizem. Patient responded to this IV Cardizem but arrived to the emergency department with a heart rate of 150 bpm. On my evaluation of her in the emergency department, her heart rate was 88 bpm it in atrial fibrillation pattern. Patient has had history of rheumatic fever in the past which has globally affected her heart per her report. Patient's book coverer is Dr. Ross. Patient has a history of hypertension on Coreg medication. She has a history of diabetes, hyperlipidemia, TIAs, and CHF. She is taking Entresto and furosemide for the CHF condition. I interpreted/evaluated an old twelve-lead EKG dated 03/17/2020. On that twelve-lead EKG it shows sinus tachycardia with PVCs, right bundle branch block and left anterior fascicular block. The QTc was 573. Timing/Duration: today Severity: mild Baseline/Normal Cognition: alert oriented x 3 Current Cognition: alert oriented x 3 Baseline Gait: walks w/o assistance Associated Symptoms: other (She at home but 100% better now with just mild lightheadedness), No confusion, No loss of consciousness, No nausea, No vomiting, No weakness, No seizures, No slurred speech, No vision changes, No chest pain, No headache Allergies/Adverse Reactions: No Known Drug Allergies Allergy (Verified 03/02/25 07:29) Home Medications: Aspirin 81 mg PO DAILY 01/01/20 [History] Carvedilol 12.5 mg [Coreg 12.5 mg] 12.5 mg PO BID 01/01/20 [History] Loratadine 10 mg [Claritin 10 mg] 10 mg PO DAILY 01/01/20 [History] Glucosamine Sulfate Dipot Chlr [Glucosamine] 1,000 mg PO BID 03/17/20 [History] Acetaminophen 325 mg [Tylenol 325 mg] 650 mg PO Q8H PRN PRN 12/15/24 [History] Metformin HCl 500 mg [Glucophage 500 MG] 500 mg PO BIDWM 12/15/24 [History] Rosuvastatin Calcium 10 mg PO DAILY 12/15/24 [History] Sacubitril/Valsartan [Entresto 24 mg-26 mg Tablet] 1 tab PO BID 12/15/24 [History] Vit C/E/Cuperic/Zinc/Lutein [Preservision Lutein Softgel] 1 each PO BID 12/15/24 [History] Furosemide [Lasix] See Rx Instructions .ROUTE .COMPLEX 03/02/25 [History] Ubidecarenone [Co Q-10] 200 mg PO DAILY 03/02/25 [History] Hx Tetanus, Diphtheria Vaccination/Date Given: No Hx Influenza Vaccination/Date Given: Yes Hx Pneumococcal Vaccination/Date Given: Yes Travel Risk - International Travel Have you traveled outside of the country in past 3 weeks: No - Emerging Infectious Disease Are you exhibiting symptoms associated with any current EIDs: No - Review of Systems Constitutional: No Symptoms Eyes: No Symptoms Ears, Nose, & Throat: No Symptoms Respiratory: No Symptoms Cardiac: No Symptoms Abdominal/Gastrointestinal: No Symptoms Genitourinary Symptoms: No Symptoms Musculoskeletal: No Symptoms Skin: No Symptoms Neurological: Dizziness Psychological: No Symptoms Endocrine: Excessive Sweating (Earlier this morning. The symptoms have improved/resolved) Hematologic/Lymphatic: No Symptoms Immunological/Allergic: No Symptoms All Other Systems: Reviewed and Negative - Past Medical History Pertinent Past Medical History: Yes Neurological History: TIA ENT History: No Pertinent History Cardiac History: Arrhythmia, High Cholesterol, Hypertension, Other Respiratory History: COPD Endocrine Medical History: Diabetes Type II Musculoskeletal History: Arthritis, Fractures GI Medical History: No Pertinent History History: No Pertinent History Psycho-Social History: No Pertinent History Female Reproductive Disorders: No Pertinent History Other Medical History: heart murmur, book coverer: Dr. Ross - Past Surgical History Past Surgical History: Yes Neuro Surgical History: No Pertinent History Cardiac: Cardiac Catheterization Respiratory: No Pertinent History Gastrointestinal: No Pertinent History Genitourinary: No Pertinent History Musculoskeletal: No Pertinent History Female Surgical History: No Pertinent History - Social History Smoking Status: Former smoker Exposure to second hand smoke: No Drug Use: none - Social Determinants of Health Will the patient participate in the screening: Yes Do you worry about a steady place to live?: No In the past 12 months,have you had to go without utilities?: No Transportation Issues: No Has anyone in your support network made you feel unsafe?: No Have you or anyone in your house had to go w/o enough food: No - Nursing Vital Signs Nursing Vital Signs: Initial Vital Signs Temperature 97 F 03/02/25 07:30 Pulse Rate 150 H 03/02/25 07:30 Respiratory Rate 19 03/02/25 07:30 Blood Pressure 125/55 03/02/25 07:30 O2 Sat by Pulse Oximetry 98 03/02/25 07:30 Pain Scale Pain Intensity 0 - [place] Coma Scale Best Eye Response ([place]): (4) open spontaneously Best Verbal Response ([place]): (5) oriented Best Motor Response ([place]): (6) obeys commands [place] Total: 15 - Physical Exam General Appearance: no apparent distress, alert Eye Exam: bilateral eye: normal inspection, PERRL, EOMI Ears, Nose, Throat Exam: normal ENT inspection, TMs normal, moist mucous membranes Neck Exam: normal inspection, non-tender, supple, full range of motion Respiratory: normal breath sounds, chest tenderness, lungs clear, respiratory distress, airway intact Cardiovascular: normal peripheral pulses, irregular Gastrointestinal: soft, normal bowel sounds, No tenderness Pelvic Exam: not done Rectal Exam: not done Back Exam: normal inspection, normal range of motion Extremity Exam: normal inspection, normal range of motion, pelvis stable Mental Status: alert, oriented x 3, cooperative card tender Exam: normal hearing, normal speech, PERRL Motor/Sensory: no motor deficit, no sensory deficit, no pronator drift Skin Exam: normal color, warm, dry SpO2 Interpretation: normal SpO2: 98 O2 Delivery: Room Air - Course Nursing assessment & vital signs reviewed: Yes EKG Interpreted by Me: RATE (116), A-fib, NORMAL AXIS, NORMAL INTERVALS, NORMAL QRS, Other (QTc is 451. No evidence of acute ischemia on this twelve-lead EKG.) Ordered Tests: Active Orders 24 hr Category Date Time Status Business Mail Entry Clerk STAT Care 03/02/25 07:52 Active EKG-ER Only STAT Care 03/02/25 07:52 Active EKG-ER Only STAT Care 03/02/25 08:00 Active IV Insertion STAT Care 03/02/25 07:52 Active HEAD WITHOUT CONTRAST [CT] Stat Exams 03/02/25 07:52 Completed CBC W DIFF Stat Lab 03/02/25 07:50 Completed CMP Stat Lab 03/02/25 07:50 Completed MAGNESIUM Stat Lab 03/02/25 07:50 Completed TROPONIN Q4H Lab 03/02/25 07:50 Completed TROPONIN Q4H Lab 03/02/25 12:00 Ordered TROPONIN Q4H Lab 03/02/25 16:00 Ordered UA W/RFX UR CULTURE Stat Lab 03/02/25 09:06 Completed Medication Summary Generic Name Dose Route Start Last Admin Trade Name Freq PRN Reason Stop Dose Admin Sodium Chloride 500 mls @ 50 mls/hr 03/02/25 09:45 Sodium Chloride 0.9% 500 Ml IV 04/01/25 09:44 .Q10H HODA Discontinued Medications Generic Name Dose Route Start Last Admin Trade Name Freq PRN Reason Stop Dose Admin Potassium Chloride 20 meq 03/02/25 08:30 03/02/25 08:33 Potassium Chloride Tab 10 Meq Tab PO 03/02/25 08:31 20 meq STAT ONE Administration Potassium Chloride Confirm 03/02/25 08:33 Potassium Chloride Tab 10 Meq Tab Administered 03/02/25 08:34 Dose 20 meq .ROUTE .STK-MED ONE Lab/Rad Data: Laboratory Result Diagrams 03/02/25 07:50 03/02/25 07:50 Laboratory Results 03/02/25 03/02/25 03/02/25 Range/Units 09:06 07:50 07:50 WBC (3.98-10.04) x10^3/uL RBC (3.93-5.22) x10^6/uL Hgb (11.2-15.7) g/dL Hct (34.1-44.9) % MCV (79.4-94.8) fL MCH (25.6-32.2) pg MCHC (32.2-35.5) g/dL RDW (11.7-14.4) % Plt Count (182-369) x10^3/uL MPV (9.4-12.3) fL Gran % (34.0-71.1) % Immature Gran % (Auto) (0.001-0.429) % Nucleat RBC Rel Count (0.00-0.2) % Eos # (Auto) (0.04-0.36) x10^3/uL Immature Gran # (Auto) (0.001-0.031) x10^3u/L Absolute Lymphs (auto) (1.18-3.74) x10^3/uL Absolute Monos (auto) (0.24-0.86) x10^3/uL Absolute Nucleated RBC (0.00-0.012) x10^3u/L Lymphocytes % (19.3-51.7) % Monocytes % (4.7-12.5) % Eosinophils % (0.7-5.8) % Basophils % (0.1-1.2) % Absolute Granulocytes (1.56-6.13) x10^3/uL Basophils # (0.01-0.08) x10^3/uL Sodium 143 (135-145) mmol/L Potassium 3.1 L (3.5-5.1) mmol/L Chloride 104 (98-107) mmol/L Carbon Dioxide 24 (22-30) mmol/L Anion Gap 18.0 H (5-15) MEQ/L BUN 16 (7-17) mg/dL Creatinine 0.84 (0.52-1.04) mg/dL Estimated GFR 68.9 ML/MIN Glucose 122 H (74-106) mg/dL Calcium 9.6 (8.4-10.2) mg/dL Magnesium 1.6 (1.6-2.3) mg/dL Total Bilirubin 0.60 (0.2-1.3) mg/dL AST 30 (14-36) U/L ALT 15 (0-35) U/L Alkaline Phosphatase 68 (38-126) U/L Troponin I 0.021 (0.000-0.033) ng/mL Serum Total Protein 6.8 (6.3-8.2) g/dL Albumin 4.3 (3.5-5.0) g/dL Urine Color Yellow (Yellow) Urine Appearance Clear (Clear) Urine pH 6.0 (4.6-8.0) Ur Specific [place] 1.015 (1.005-1.030) Urine Protein 30 (Negative) Urine Glucose (UA) Negative (Negative) mg/dL Urine Ketones 15 A (Negative) Urine Blood Small A (Negative) Urine Nitrite Negative (Negative) Urine Bilirubin Negative (Negative) Urine Urobilinogen 1.0 A (0.2) mg/dL Ur Leukocyte Esterase Negative (Negative) U Hyaline Cast (Auto) 3-5 A (0-2) /LPF Urine Microscopic RBC 6-10 A (0-5) /HPF Urine Microscopic WBC 0-2 (0-5) /HPF Ur Epithelial Cells None Seen (None Seen) /HPF Urine Bacteria None Seen (None Seen) /HPF Urine Culture Reflexed NO (NO) 03/02/25 Range/Units 07:50 WBC 5.6 (3.98-10.04) x10^3/uL RBC 4.71 (3.93-5.22) x10^6/uL Hgb 13.4 (11.2-15.7) g/dL Hct 42.7 (34.1-44.9) % MCV 90.7 (79.4-94.8) fL MCH 28.5 (25.6-32.2) pg MCHC 31.4 L (32.2-35.5) g/dL RDW 12.6 (11.7-14.4) % Plt Count 124 L (182-369) x10^3/uL MPV 12.4 H (9.4-12.3) fL Gran % 63.8 (34.0-71.1) % Immature Gran % (Auto) 0.2 (0.001-0.429) % Nucleat RBC Rel Count 0.0 (0.00-0.2) % Eos # (Auto) 0.09 (0.04-0.36) x10^3/uL Immature Gran # (Auto) 0.01 (0.001-0.031) x10^3u/L Absolute Lymphs (auto) 1.46 (1.18-3.74) x10^3/uL Absolute Monos (auto) 0.42 (0.24-0.86) x10^3/uL Absolute Nucleated RBC 0.00 (0.00-0.012) x10^3u/L Lymphocytes % 26.2 (19.3-51.7) % Monocytes % 7.5 (4.7-12.5) % Eosinophils % 1.6 (0.7-5.8) % Basophils % 0.7 (0.1-1.2) % Absolute Granulocytes 3.55 (1.56-6.13) x10^3/uL Basophils # 0.04 (0.01-0.08) x10^3/uL Sodium (135-145) mmol/L Potassium (3.5-5.1) mmol/L Chloride (98-107) mmol/L Carbon Dioxide (22-30) mmol/L Anion Gap (5-15) MEQ/L BUN (7-17) mg/dL Creatinine (0.52-1.04) mg/dL Estimated GFR ML/MIN Glucose (74-106) mg/dL Calcium (8.4-10.2) mg/dL Magnesium (1.6-2.3) mg/dL Total Bilirubin (0.2-1.3) mg/dL AST (14-36) U/L ALT (0-35) U/L Alkaline Phosphatase (38-126) U/L Troponin I (0.000-0.033) ng/mL Serum Total Protein (6.3-8.2) g/dL Albumin (3.5-5.0) g/dL Urine Color (Yellow) Urine Appearance (Clear) Urine pH (4.6-8.0) Ur Specific [place] (1.005-1.030) Urine Protein (Negative) Urine Glucose (UA) (Negative) mg/dL Urine Ketones (Negative) Urine Blood (Negative) Urine Nitrite (Negative) Urine Bilirubin (Negative) Urine Urobilinogen (0.2) mg/dL Ur Leukocyte Esterase (Negative) U Hyaline Cast (Auto) (0-2) /LPF Urine Microscopic RBC (0-5) /HPF Urine Microscopic WBC (0-5) /HPF Ur Epithelial Cells (None Seen) /HPF Urine Bacteria (None Seen) /HPF Urine Culture Reflexed (NO) - Progress Progress: improved, re-examined Progress Note: 03/02/25 07:59 My medical decision making and the assignment of moderate to high complexity of this patient's medical issue today is based on review of the patient's past medical history, review of the patient's medication list, review the patient drug allergy list, history present illness and physical findings on examination. The workup in this patient includes placement of an intravenous line, CBC, CMP, magnesium level, troponin level, twelve-lead EKG, CT scan of the head without contrast and urinalysis. Differential diagnosis includes but is not limited to atrial fibrillation with RVR, myocardial infarction, other arrhythmia, electrolyte abnormalities, dehydration, urinary tract infection, acute intracranial abnormality 03/02/25 09:[address] scan of the head without contrast was interpreted by the radiologist and I reviewed the impression. The impression states no acute intracranial abnormalities. There is age-related involutional changes. There is ill-defined hypodensities in the subcortical white matter of the bilateral frontal lobes likely small vessel ischemic changes. 03/02/25 09:43 I interpreted the patient's laboratory data results. Based on the laboratory data results, the patient has mild dehydration with ketones in her urine. No other acute, emergent medical findings. 03/02/25 09:43 I interpreted the patient's repeat/second twelve-lead EKG that was performed on 03/02/2025 at 08 100. The rate is 87 bpm. The rhythm is sinus rhythm. There are PVCs present. There is borderline T wave abnormalities and a prolonged QT interval. There is no evidence of any acute ischemia and the QTc is 508. 03/02/25 10:[address] Guzmán, the telehospitalist on at this time and I reviewed the patient history, reviewed the patient's presenting complaint, physical findings and the results of laboratory, radiographic and EKG studies. We will be placing this patient in observation on a monitored bed. She agrees to place this patient in observation Counseled pt/family regarding: lab results, diagnosis, rad results Medical Desision Making - Independent Historian Additional History obtained from: Fish And Game Warden/EMT - Discussion of managment Care discussed with:: hospitalist Reviewed:: Test results, Need for additional workup - Diagnostic Testing Diagnostic test were ordered, analyzed, and reviewed by me: Yes Radiological Interpretation: Reviewed by me, Teleradiologist Report - Risk of complications The pt has a high risk of morbidity or mortality based on: Decision regarding hospitilization or escalation of hosp level of care - Departure Departure Disposition: Observation Clinical Impression: Atrial fibrillation with RVR, Dehydration, Dizziness Condition: Fair Critical Care Time: Yes Critical Care Time(excluding separately billable procedures): Critical 30-74 mins (45) Referrals: ROD MAYEN [Primary Care Provider, [facility]] - Follow up/PCP as directed
[2025-03-02 08:15] LABS: ALBUMIN 4.3 g/dL (3.5-5.0); BILIRUBIN,TOTAL 0.6 mg/dL (0.2-1.3); Calcium 9.6 mg/dL (8.4-10.2); Creatinine 1 0.84 mg/dL (0.52-1.04); EST GLOMERULAR FILTRATION RATE 68.9 ML/MIN; MAGNESIUM 1.6 mg/dL (1.6-2.3); Potassium 3.1 mmol/L (3.5-5.1); Total Protein 6.8 g/dL (6.3-8.2)
[2025-03-02 08:18] LABS: Absolute Neutrophil Ct (ANC) 3.55 x10^3/uL (1.56-6.13); BASOPHIL % 0.7 % (0.1-1.2); Basophil (Absolute #) 0.04 x10^3/uL (0.01-0.08); Eosinophil % 1.6 % (0.7-5.8); Eosinophil (Absolute #) 0.09 x10^3/uL (0.04-0.36); Hematocrit 42.7 % (34.1-44.9); Hemoglobin 13.4 g/dL (11.2-15.7); IMMATURE GRAN # 0.01 x10^3u/L (0.001-0.031); IMMATURE GRAN % 0.2 % (0.001-0.429); Lymphocyte (Absolute #) 1.46 x10^3/uL (1.18-3.74); Lymphocytes % 26.2 % (19.3-51.7); Mean Cell Volume 90.7 fL (79.4-94.8); Mean Corpuscular Hemoglobin 28.5 pg (25.6-32.2); Mean Corpuscular Hgb Concent. 31.4 g/dL (32.2-35.5); Mean Platelet Volume 12.4 fL (9.4-12.3); Monocyte (Absolute #) 0.42 x10^3/uL (0.24-0.86); Monocytes % 7.5 % (4.7-12.5); Neutrophil % 63.8 % (34.0-71.1); Platelet Count 124 x10^3/uL (182-369); Red Blood Count 4.71 x10^6/uL (3.93-5.22); Red Cell Distribution Width 12.6 % (11.7-14.4); White Blood Count 5.6 x10^3/uL (3.98-10.04)
[2025-03-02] MEDS ORDERED: Klor Con ONE (08:33)
[2025-03-02] MEDS: Klor Con PO ONE (08:33)
--- NOTE | 2025-03-02 08:58 | XRAY ---
CLINICAL HISTORY: Dizziness COMPARISON: None. TECHNIQUE: Axial non-contrast CT scan of the brain was performed from the skull base to the high parietal region. One of the following dose reduction techniques were utilized for this exam: Automated exposure control, adjustment of the mA and/or kV according to patient size, use of iterative reconstruction. CTDI: 53.92 mGy, DLP: 991.01 mGycm. FINDINGS: Brain Parenchyma: Age related involutional changes. Ill defined hypodensities in subcortical white matter of bilateral frontal lobes likely small vessel ischemic changes. Normal attenuation of the cerebral hemispheres, cerebellum, and brainstem. No evidence of acute infarct, hemorrhage, or mass effect. Ventricular System: Ventricles are prominent. No evidence of hydrocephalus or ventricular enlargement. Subarachnoid Spaces: Normal sulci and cisterns. No evidence of subarachnoid hemorrhage or extra-axial fluid collections. Cerebellum and Brainstem: Normal size and signal. No masses, lesions, or areas of abnormal density. Orbits: Normal appearance of the globes, optic nerves, and extraocular muscles. No evidence of orbital masses or abnormal density. Sinuses: Clear paranasal sinuses. No evidence of sinusitis or mucosal thickening. Mastoid Air Cells: Clear mastoid air cells. No evidence of mastoiditis. Skull: Normal skull morphology. IMPRESSION: 1. No acute intracranial abnormality. 2. Age related involutional changes. 3. Ill defined hypodensities in subcortical white matter of bilateral frontal lobes likely small vessel ischemic changes. Electronically Signed by: Leti Ware MD. (03/02/2025 08:54:43 EDT)
[2025-03-02 09:32] LABS: Appearance Clear (Clear); Bacteria None Seen /HPF (None Seen); Bilirubin Negative (Negative); Blood Small (Negative); Epithelial Cells None Seen /HPF (None Seen); Glucose, Urine Negative (Negative); Ketones 15 (Negative); Leukocyte Esterase Negative (Negative); Nitrite Negative (Negative); Protein,Urine Dip 30 (Negative); Specific Gravity 1.015 (1.005-1.030); WBC 0-2 /HPF (0-5)
[2025-03-02] MEDS ORDERED: Sodium Chloride 0.9% 500 ML 500 ML IV ONE (11:11)
[2025-03-02 11:14] LABS: Slide Review 1 YES
[2025-03-02] MEDS: Sodium Chloride 0.9% 500 ML 500 ML IV SCH (11:14)
--- NOTE | 2025-03-02 11:29 | PCM.HP ---
<DENISE VILLALBA - Last Filed: 03/02/25 12:53> History of Present Illness - Chief Complaint Chief Complaint: AFIB Date: 03/02/25 History of Present Illness: is a 84 year old female with a pmhx of type 2 diabetes mellitus, hypertension, hyperlipidemia, AFIB, chronic systolic heart failure (HFrEF), prior transient ischemic attacks, and chronic atrial fibrillation, as well as a remote history of rheumatic fever who presented to ED 03/02/25 via EMS after awakening at approximately 5:15 AM with acute-onset dizziness and diaphoresis. Patient reported that she had a recent left shoulder injury and prescribed pain medication. She took 1/2 of a pain pill around 2 a.m. and later woke up with dizziness, diaphoresis, and left arm tingling. She denied chest pain, palpitations, shortness of breath, nausea, or vomiting. She called EMS and they found her to be in atrial fibrillation with a rapid ventricular response (heart rate of 180 bpm) and administered 10 mg of intravenous diltiazem, resulting in partial rate control. Upon arrival at the emergency department, her heart rate was 150 bpm, which subsequently improved to the 80s. On arrival to the ED, her HR was 150 bpm, and she was found to be in atrial fibrillation with HR in the 80s on evaluation. EKG showed atrial fibrillation with HR 116 bpm, normal intervals, QTc 451, no ischemic changes. A repeat EKG showed sinus rhythm with PVCs, borderline T wave changes, and QTc 508. Review of a transthoracic echocardiogram from March 2020 showed left ventricular hypokinesia with an estimated EF of 40%, mild to moderate mitral regurgitation, mild aortic regurgitation, trace tricuspid regurgitation with RVSP of 24 mmHg, concentric left ventricular hypertrophy, and diastolic dysfunction. Labs were remarkable for hypokalemia (3.1, repleted with 20 mEq KCl), thrombocytopenia (Plt 124), anion gap 18, and ketonuria consistent with mild dehydration. Troponin I was negative. Non-contrast head CT revealed no acute intracranial process, but did show age-related involutional changes and chronic subcortical small vessel ischemic changes in the bilateral frontal lobes. The patient follows with Dr. Ross (cardiology). The patient is now hemodynamically stable with improved rate control. She will remain on telemetry for ongoing rhythm and QTc monitoring. Will need OP follow up with her pt escort to discuss anticoagulation as she states she has only ever been on aspirin. - Review of Systems Constitutional: No Symptoms Eyes: No Symptoms Ears, Nose, & Throat: No Symptoms Respiratory: No Symptoms Cardiac: No Symptoms Abdominal/Gastrointestinal: No Symptoms Genitourinary Symptoms: No Symptoms Musculoskeletal: Joint Pain (left shoulder ) Skin: No Symptoms Neurological: No Symptoms Psychological: No Symptoms Endocrine: No Symptoms Hematologic/Lymphatic: No Symptoms Immunological/Allergic: No Symptoms Medications & Allergies Home Medications: Home Medication List Aspirin 81 mg PO DAILY 01/01/20 [History Confirmed 03/02/25] Carvedilol 12.5 mg [Coreg 12.5 mg] 12.5 mg PO BID 01/01/20 [History Confirmed 03/02/25] Loratadine 10 mg [Claritin 10 mg] 10 mg PO DAILY 01/01/20 [History Confirmed 03/02/25] Glucosamine Sulfate Dipot Chlr [Glucosamine] 1,000 mg PO BID 03/17/20 [History Confirmed 03/02/25] Acetaminophen 325 mg [Tylenol 325 mg] 650 mg PO Q8H PRN PRN 12/15/24 [History Confirmed 03/02/25] Metformin HCl 500 mg [Glucophage 500 MG] 500 mg PO BIDWM 12/15/24 [History Confirmed 03/02/25] Rosuvastatin Calcium 10 mg PO DAILY 12/15/24 [History Confirmed 03/02/25] Sacubitril/Valsartan [Entresto 24 mg-26 mg Tablet] 1 tab PO BID 12/15/24 [Hist ory Confirmed 03/02/25] Vit C/E/Cuperic/Zinc/Lutein [Preservision Lutein Softgel] 1 each PO BID 12/15/24 [History Confirmed 03/02/25] Furosemide [Lasix] See Rx Instructions .ROUTE .COMPLEX 03/02/25 [History Confirmed 03/02/25] Non-Formulary Drug [Non-Formulary Item] 1 each PO BID 03/02/25 [History Confirmed 03/02/25] Ubidecarenone [Co Q-10] 200 mg PO DAILY 03/02/25 [History Confirmed 03/02/25] Allergies/Adverse Reactions: Allergies Allergy/AdvReac Type Severity Reaction Status Date / Time No Known Drug Allergies Allergy Verified 03/02/25 07:29 - Past Medical History Past Medical History: Yes Neurological History: TIA ENT History: No Pertinent History Cardiac History: Arrhythmia, High Cholesterol, Hypertension, Other Respiratory History: COPD Endocrine Medical History: Diabetes Type II Musculoskelatal History: Arthritis, Fractures GI Medical History: No Pertinent History History: No Pertinent History Pyscho-Social History: No Pertinent History Reproductive Disorders: No Pertinent History Comment: heart murmur, pt escort: Dr. Ross - Past Surgical History Past Surgical History: Yes Neuro Surgical History: No Pertinent History Cardiac History: Cardiac Catheterization Respiratory Surgery: No Pertinent History GI Surgical History: No Pertinent History Genitourinary Surgical Hx: No Pertinent History Musculskeletal Surgical Hx: No Pertinent History Female Surgical History: No Pertinent History Significant Family History: heart disease - Social History Smoking Status: Former smoker How long have you smoked: 1/2 Exposure to second hand smoke: No Alcohol: None Drug Use: none - Social Determinants of Health Will the patient participate in the screening: Yes Do you worry about a steady place to live?: No Do you have any problems with any of the following?: No known problems In the past 12 months,have you had to go without utilities?: No Have you or anyone in your house had to go without enough: No Transportation Issues: No Has anyone in your support network made you feel unsafe?: No - Physical Exam Vital Signs: Vital Signs - 24 hr Temp Pulse Resp BP Pulse Ox 03/02/25 11:00 76 16 157/62 98 03/02/25 10:54 98 03/02/25 10:30 74 19 152/54 96 03/02/25 10:00 68 22 141/63 97 03/02/25 09:30 70 25 H 145/54 95 03/02/25 09:07 77 17 147/62 96 03/02/25 09:03 96 03/02/25 08:30 84 139/69 95 03/02/25 08:00 132/68 96 03/02/25 07:30 97 F 150 H 19 125/55 98 General Appearance: no apparent distress Neurologic Exam: alert, oriented x 3, cooperative Eye Exam: PERRL/EOMI Ears, Nose, Throat Exam: normal ENT inspection Neck Exam: normal inspection Respiratory Exam: normal breath sounds, lungs clear Cardiovascular Exam: irregular Gastrointestinal/Abdomen Exam: soft, normal bowel sounds Pelvic Exam: not done Rectal Exam: deferred Back Exam: normal inspection Extremity Exam: normal inspection Skin Exam: normal color Results - Labs Lab/Micro Results: Lab Results-Last 24 Hours 03/02/25 03/02/25 03/02/25 Range/Units 07:50 07:50 07:50 WBC 5.6 (3.98-10.04) x10^3/uL RBC 4.71 (3.93-5.22) x10^6/uL Hgb 13.4 (11.2-15.7) g/dL Hct 42.7 (34.1-44.9) % MCV 90.7 (79.4-94.8) fL MCH 28.5 (25.6-32.2) pg MCHC 31.4 L (32.2-35.5) g/dL RDW 12.6 (11.7-14.4) % Plt Count 124 L (182-369) x10^3/uL MPV 12.4 H (9.4-12.3) fL Gran % 63.8 (34.0-71.1) % Immature Gran % (Auto) 0.2 (0.001-0.429) % Nucleat RBC Rel Count 0.0 (0.00-0.2) % Eos # (Auto) 0.09 (0.04-0.36) x10^3/uL Immature Gran # (Auto) 0.01 (0.001-0.031) x10^3u/L Absolute Lymphs (auto) 1.46 (1.18-3.74) x10^3/uL Absolute Monos (auto) 0.42 (0.24-0.86) x10^3/uL Absolute Nucleated RBC 0.00 (0.00-0.012) x10^3u/L Lymphocytes % 26.2 (19.3-51.7) % Monocytes % 7.5 (4.7-12.5) % Eosinophils % 1.6 (0.7-5.8) % Basophils % 0.7 (0.1-1.2) % Absolute Granulocytes 3.55 (1.56-6.13) x10^3/uL Basophils # 0.04 (0.01-0.08) x10^3/uL Sodium 143 (135-145) mmol/L Potassium 3.1 L (3.5-5.1) mmol/L Chloride 104 (98-107) mmol/L Carbon Dioxide 24 (22-30) mmol/L Anion Gap 18.0 H (5-15) MEQ/L BUN 16 (7-17) mg/dL Creatinine 0.84 (0.52-1.04) mg/dL Estimated GFR 68.9 ML/MIN Glucose 122 H (74-106) mg/dL Calcium 9.6 (8.4-10.2) mg/dL Magnesium 1.6 (1.6-2.3) mg/dL Total Bilirubin 0.60 (0.2-1.3) mg/dL AST 30 (14-36) U/L ALT 15 (0-35) U/L Alkaline Phosphatase 68 (38-126) U/L Troponin I 0.021 (0.000-0.033) ng/mL Serum Total Protein 6.8 (6.3-8.2) g/dL Albumin 4.3 (3.5-5.0) g/dL Urine Color (Yellow) Urine Appearance (Clear) Urine pH (4.6-8.0) Ur Specific Hew[place] (1.005-1.030) Urine Protein (Negative) Urine Glucose (UA) (Negative) mg/dL Urine Ketones (Negative) Urine Blood (Negative) Urine Nitrite (Negative) Urine Bilirubin (Negative) Urine Urobilinogen (0.2) mg/dL Ur Leukocyte Esterase (Negative) U Hyaline Cast (Auto) (0-2) /LPF Urine Microscopic RBC (0-5) /HPF Urine Microscopic WBC (0-5) /HPF Ur Epithelial Cells (None Seen) /HPF Urine Bacteria (None Seen) /HPF Urine Culture Reflexed (NO) Slides for Path Review YES 03/02/25 Range/Units 09:06 WBC (3.98-10.04) x10^3/uL RBC (3.93-5.22) x10^6/uL Hgb (11.2-15.7) g/dL Hct (34.1-44.9) % MCV (79.4-94.8) fL MCH (25.6-32.2) pg MCHC (32.2-35.5) g/dL RDW (11.7-14.4) % Plt Count (182-369) x10^3/uL MPV (9.4-12.3) fL Gran % (34.0-71.1) % Immature Gran % (Auto) (0.001-0.429) % Nucleat RBC Rel Count (0.00-0.2) % Eos # (Auto) (0.04-0.36) x10^3/uL Immature Gran # (Auto) (0.001-0.031) x10^3u/L Absolute Lymphs (auto) (1.18-3.74) x10^3/uL Absolute Monos (auto) (0.24-0.86) x10^3/uL Absolute Nucleated RBC (0.00-0.012) x10^3u/L Lymphocytes % (19.3-51.7) % Monocytes % (4.7-12.5) % Eosinophils % (0.7-5.8) % Basophils % (0.1-1.2) % Absolute Granulocytes (1.56-6.13) x10^3/uL Basophils # (0.01-0.08) x10^3/uL Sodium (135-145) mmol/L Potassium (3.5-5.1) mmol/L Chloride (98-107) mmol/L Carbon Dioxide (22-30) mmol/L Anion Gap (5-15) MEQ/L BUN (7-17) mg/dL Creatinine (0.52-1.04) mg/dL Estimated GFR ML/MIN Glucose (74-106) mg/dL Calcium (8.4-10.2) mg/dL Magnesium (1.6-2.3) mg/dL Total Bilirubin (0.2-1.3) mg/dL AST (14-36) U/L ALT (0-35) U/L Alkaline Phosphatase (38-126) U/L Troponin I (0.000-0.033) ng/mL Serum Total Protein (6.3-8.2) g/dL Albumin (3.5-5.0) g/dL Urine Color Yellow (Yellow) Urine Appearance Clear (Clear) Urine pH 6.0 (4.6-8.0) Ur Specific [place]ett 1.015 (1.005-1.030) Urine Protein 30 (Negative) Urine Glucose (UA) Negative (Negative) mg/dL Urine Ketones 15 A (Negative) Urine Blood Small A (Negative) Urine Nitrite Negative (Negative) Urine Bilirubin Negative (Negative) Urine Urobilinogen 1.0 A (0.2) mg/dL Ur Leukocyte Esterase Negative (Negative) U Hyaline Cast (Auto) 3-5 A (0-2) /LPF Urine Microscopic RBC 6-10 A (0-5) /HPF Urine Microscopic WBC 0-2 (0-5) /HPF Ur Epithelial Cells None Seen (None Seen) /HPF Urine Bacteria None Seen (None Seen) /HPF Urine Culture Reflexed NO (NO) Slides for Path Review - Radiology Impressions Radiology Exams & Impressions: Radiology Procedures Category Date Time Status HEAD WITHOUT CONTRAST [CT] Stat Exams 03/02/25 07:52 Completed Assessment/Plan (1) Atrial fibrillation with RVR Current Visit: Yes Status: Acute Assessment & Plan: -Initial EKG showed atrial fibrillation with a ventricular rate of 116 bpm and a QTc of 451 ms without evidence of acute ischemia. A repeat EKG showed conversion to sinus rhythm with premature ventricular complexes, borderline T wave changes, and a QTc of 508 ms -Continue beta-amita therapy home carvediolol to maintain heart rate within target range -Tele -Anticoagulation: chads-VASc score 9; initiate or continue anticoagulation therapy as appropriate to reduce thromboembolic risk - defer to cardiology OP -Follows OP with Dr. Ross -Echo from March 2020 showed left ventricular hypokinesia with an estimated EF of 40%, mild to moderate mitral regurgitation, mild aortic regurgitation, trace tricuspid regurgitation with RVSP of 24 mmHg, concentric left ventricular hypertrophy, and diastolic dysfunction Code(s): I48.91 - UNSPECIFIED ATRIAL FIBRILLATION (2) Systolic heart failure Current Visit: Yes Status: Acute Assessment & Plan: -Continue sacubitril/valsartan (Entresto) and beta-amita therapy -Monitor fluid status; adjust diuretic therapy -Consider repeat transthoracic echocardiogram OP (not available on weekends) to assess current ejection fraction and valvular function - prior echo from 2019 as stated above Code(s): I50.20 - UNSPECIFIED SYSTOLIC (CONGESTIVE) HEART FAILURE (3) Hypokalemia Current Visit: Yes Status: Acute Assessment & Plan: -Potassium reviewed on admission at 3.1- 20 meq given in ED -Continue potassium supplementation to maintain serum potassium levels >4.0 mmol/L, especially in the context of diuretic use and arrhythmia risk -Tele Code(s): E87.6 - HYPOKALEMIA (4) Type 2 diabetes mellitus Current Visit: Yes Status: Acute Assessment & Plan: -ADA diet -SSI -A1c (5) HLD (hyperlipidemia) Current Visit: Yes Status: Acute Assessment & Plan: -Continue statin Code(s): E78.5 - HYPERLIPIDEMIA, UNSPECIFIED (6) History of TIA (transient ischemic attack) Current Visit: Yes Status: Acute Assessment & Plan: -CT head negative with no acute intracranial abnormality; age-related involutional changes and subcortical white matter hypodensities, likely representing chronic small vessel ischemic changes. -continue home aspirin Code(s): Z86.73 - PRSNL HX OF TIA (TIA), AND CEREB INFRC W/O RESID DEFICITS (7) Dehydration Current Visit: Yes Status: Acute Assessment & Plan: -Gentle hydration at 50ml/hr for a total of 500ml Code(s): E86.0 - DEHYDRATION (8) HTN (hypertension) Current Visit: Yes Status: Acute Assessment & Plan: -continue home medications VTE: Lovenox PPI: protonix Dispo: 1-3 days Code status: SCO Code(s): I10 - ESSENTIAL (PRIMARY) HYPERTENSION <KINZA PARIKH - Last Filed: 03/03/25 00:22> History of Present Illness - Chief Complaint History of Present Illness: is a 84 year old female. - Physical Exam Vital Signs: Vital Signs - 24 hr Temp Pulse Resp BP BP Pulse Ox 03/03/25 00:00 97.4 F 89 20 182/76 94 L 03/02/25 19:37 97.6 F 84 20 200/81 94 L 03/02/25 16:00 97.9 F 77 16 140/62 96 03/02/25 14:32 97.6 F 78 21 168/88 97 03/02/25 12:29 97.6 F 78 21 168/88 97 03/02/25 12:00 84 27 H 165/59 97 03/02/25 11:30 77 18 172/58 97 03/02/25 11:00 76 16 157/62 98 03/02/25 10:54 98 03/02/25 10:30 74 19 152/54 96 03/02/25 10:00 68 22 141/63 97 03/02/25 09:30 70 25 H 145/54 95 03/02/25 09:07 77 17 147/62 96 03/02/25 09:03 96 03/02/25 08:30 84 139/69 95 03/02/25 08:00 132/68 96 03/02/25 07:30 97 F 150 H 19 125/55 98 Results - Labs Lab/Micro Results: Lab Results-Last 24 Hours 03/02/25 03/02/25 03/02/25 Range/Units 07:50 07:50 07:50 WBC 5.6 (3.98-10.04) x10^3/uL RBC 4.71 (3.93-5.22) x10^6/uL Hgb 13.4 (11.2-15.7) g/dL Hct 42.7 (34.1-44.9) % MCV 90.7 (79.4-94.8) fL MCH 28.5 (25.6-32.2) pg MCHC 31.4 L (32.2-35.5) g/dL RDW 12.6 (11.7-14.4) % Plt Count 124 L (182-369) x10^3/uL MPV 12.4 H (9.4-12.3) fL Gran % 63.8 (34.0-71.1) % Immature Gran % (Auto) 0.2 (0.001-0.429) % Nucleat RBC Rel Count 0.0 (0.00-0.2) % Eos # (Auto) 0.09 (0.04-0.36) x10^3/uL Immature Gran # (Auto) 0.01 (0.001-0.031) x10^3u/L Absolute Lymphs (auto) 1.46 (1.18-3.74) x10^3/uL Absolute Monos (auto) 0.42 (0.24-0.86) x10^3/uL Absolute Nucleated RBC 0.00 (0.00-0.012) x10^3u/L Lymphocytes % 26.2 (19.3-51.7) % Monocytes % 7.5 (4.7-12.5) % Eosinophils % 1.6 (0.7-5.8) % Basophils % 0.7 (0.1-1.2) % Absolute Granulocytes 3.55 (1.56-6.13) x10^3/uL Basophils # 0.04 (0.01-0.08) x10^3/uL Sodium 143 (135-145) mmol/L Potassium 3.1 L (3.5-5.1) mmol/L Chloride 104 (98-107) mmol/L Carbon Dioxide 24 (22-30) mmol/L Anion Gap 18.0 H (5-15) MEQ/L BUN 16 (7-17) mg/dL Creatinine 0.84 (0.52-1.04) mg/dL Estimated GFR 68.9 ML/MIN Glucose 122 H (74-106) mg/dL POC Glucometer (74 to 106) mg/dL Calcium 9.6 (8.4-10.2) mg/dL Magnesium 1.6 (1.6-2.3) mg/dL Total Bilirubin 0.60 (0.2-1.3) mg/dL AST 30 (14-36) U/L ALT 15 (0-35) U/L Alkaline Phosphatase 68 (38-126) U/L Troponin I 0.021 (0.000-0.033) ng/mL Serum Total Protein 6.8 (6.3-8.2) g/dL Albumin 4.3 (3.5-5.0) g/dL Urine Color (Yellow) Urine Appearance (Clear) Urine pH (4.6-8.0) Ur Specific [place] (1.005-1.030) Urine Protein (Negative) Urine Glucose (UA) (Negative) mg/dL Urine Ketones (Negative) Urine Blood (Negative) Urine Nitrite (Negative) Urine Bilirubin (Negative) Urine Urobilinogen (0.2) mg/dL Ur Leukocyte Esterase (Negative) U Hyaline Cast (Auto) (0-2) /LPF Urine Microscopic RBC (0-5) /HPF Urine Microscopic WBC (0-5) /HPF Ur Epithelial Cells (None Seen) /HPF Urine Bacteria (None Seen) /HPF Urine Culture Reflexed (NO) Slides for Path Review YES 03/02/25 03/02/25 03/02/25 Range/Units 09:06 11:45 11:45 WBC (3.98-10.04) x10^3/uL RBC (3.93-5.22) x10^6/uL Hgb (11.2-15.7) g/dL Hct (34.1-44.9) % MCV (79.4-94.8) fL MCH (25.6-32.2) pg MCHC (32.2-35.5) g/dL RDW (11.7-14.4) % Plt Count (182-369) x10^3/uL MPV (9.4-12.3) fL Gran % (34.0-71.1) % Immature Gran % (Auto) (0.001-0.429) % Nucleat RBC Rel Count (0.00-0.2) % Eos # (Auto) (0.04-0.36) x10^3/uL Immature Gran # (Auto) (0.001-0.031) x10^3u/L Absolute Lymphs (auto) (1.18-3.74) x10^3/uL Absolute Monos (auto) (0.24-0.86) x10^3/uL Absolute Nucleated RBC (0.00-0.012) x10^3u/L Lymphocytes % (19.3-51.7) % Monocytes % (4.7-12.5) % Eosinophils % (0.7-5.8) % Basophils % (0.1-1.2) % Absolute Granulocytes (1.56-6.13) x10^3/uL Basophils # (0.01-0.08) x10^3/uL Sodium (135-145) mmol/L Potassium 3.4 L (3.5-5.1) mmol/L Chloride (98-107) mmol/L Carbon Dioxide (22-30) mmol/L Anion Gap (5-15) MEQ/L BUN (7-17) mg/dL Creatinine (0.52-1.04) mg/dL Estimated GFR ML/MIN Glucose (74-106) mg/dL POC Glucometer (74 to 106) mg/dL Calcium (8.4-10.2) mg/dL Magnesium 1.8 (1.6-2.3) mg/dL Total Bilirubin (0.2-1.3) mg/dL AST (14-36) U/L ALT (0-35) U/L Alkaline Phosphatase (38-126) U/L Troponin I 0.312 H* (0.000-0.033) ng/mL Serum Total Protein (6.3-8.2) g/dL Albumin (3.5-5.0) g/dL Urine Color Yellow (Yellow) Urine Appearance Clear (Clear) Urine pH 6.0 (4.6-8.0) Ur Specific [place] 1.015 (1.005-1.030) Urine Protein 30 (Negative) Urine Glucose (UA) Negative (Negative) mg/dL Urine Ketones 15 A (Negative) Urine Blood Small A (Negative) Urine Nitrite Negative (Negative) Urine Bilirubin Negative (Negative) Urine Urobilinogen 1.0 A (0.2) mg/dL Ur Leukocyte Esterase Negative (Negative) U Hyaline Cast (Auto) 3-5 A (0-2) /LPF Urine Microscopic RBC 6-10 A (0-5) /HPF Urine Microscopic WBC 0-2 (0-5) /HPF Ur Epithelial Cells None Seen (None Seen) /HPF Urine Bacteria None Seen (None Seen) /HPF Urine Culture Reflexed NO (NO) Slides for Path Review 03/02/25 03/02/25 03/02/25 Range/Units 16:04 16:16 19:00 WBC (3.98-10.04) x10^3/uL RBC (3.93-5.22) x10^6/uL Hgb (11.2-15.7) g/dL Hct (34.1-44.9) % MCV (79.4-94.8) fL MCH (25.6-32.2) pg MCHC (32.2-35.5) g/dL RDW (11.7-14.4) % Plt Count (182-369) x10^3/uL MPV (9.4-12.3) fL Gran % (34.0-71.1) % Immature Gran % (Auto) (0.001-0.429) % Nucleat RBC Rel Count (0.00-0.2) % Eos # (Auto) (0.04-0.36) x10^3/uL Immature Gran # (Auto) (0.001-0.031) x10^3u/L Absolute Lymphs (auto) (1.18-3.74) x10^3/uL Absolute Monos (auto) (0.24-0.86) x10^3/uL Absolute Nucleated RBC (0.00-0.012) x10^3u/L Lymphocytes % (19.3-51.7) % Monocytes % (4.7-12.5) % Eosinophils % (0.7-5.8) % Basophils % (0.1-1.2) % Absolute Granulocytes (1.56-6.13) x10^3/uL Basophils # (0.01-0.08) x10^3/uL Sodium (135-145) mmol/L Potassium 3.7 (3.5-5.1) mmol/L Chloride (98-107) mmol/L Carbon Dioxide (22-30) mmol/L Anion Gap (5-15) MEQ/L BUN (7-17) mg/dL Creatinine (0.52-1.04) mg/dL Estimated GFR ML/MIN Glucose (74-106) mg/dL POC Glucometer 171 H (74 to 106) mg/dL Calcium (8.4-10.2) mg/dL Magnesium (1.6-2.3) mg/dL Total Bilirubin (0.2-1.3) mg/dL AST (14-36) U/L ALT (0-35) U/L Alkaline Phosphatase (38-126) U/L Troponin I 0.501 H* (0.000-0.033) ng/mL Serum Total Protein (6.3-8.2) g/dL Albumin (3.5-5.0) g/dL Urine Color (Yellow) Urine Appearance (Clear) Urine pH (4.6-8.0) Ur Specific [place] (1.005-1.030) Urine Protein (Negative) Urine Glucose (UA) (Negative) mg/dL Urine Ketones (Negative) Urine Blood (Negative) Urine Nitrite (Negative) Urine Bilirubin (Negative) Urine Urobilinogen (0.2) mg/dL Ur Leukocyte Esterase (Negative) U Hyaline Cast (Auto) (0-2) /LPF Urine Microscopic RBC (0-5) /HPF Urine Microscopic WBC (0-5) /HPF Ur Epithelial Cells (None Seen) /HPF Urine Bacteria (None Seen) /HPF Urine Culture Reflexed (NO) Slides for Path Review 03/02/25 03/02/25 03/02/25 Range/Units 19:00 22:19 23:07 WBC (3.98-10.04) x10^3/uL RBC (3.93-5.22) x10^6/uL Hgb (11.2-15.7) g/dL Hct (34.1-44.9) % MCV (79.4-94.8) fL MCH (25.6-32.2) pg MCHC (32.2-35.5) g/dL RDW (11.7-14.4) % Plt Count (182-369) x10^3/uL MPV (9.4-12.3) fL Gran % (34.0-71.1) % Immature Gran % (Auto) (0.001-0.429) % Nucleat RBC Rel Count (0.00-0.2) % Eos # (Auto) (0.04-0.36) x10^3/uL Immature Gran # (Auto) (0.001-0.031) x10^3u/L Absolute Lymphs (auto) (1.18-3.74) x10^3/uL Absolute Monos (auto) (0.24-0.86) x10^3/uL Absolute Nucleated RBC (0.00-0.012) x10^3u/L Lymphocytes % (19.3-51.7) % Monocytes % (4.7-12.5) % Eosinophils % (0.7-5.8) % Basophils % (0.1-1.2) % Absolute Granulocytes (1.56-6.13) x10^3/uL Basophils # (0.01-0.08) x10^3/uL Sodium (135-145) mmol/L Potassium 4.4 (3.5-5.1) mmol/L Chloride (98-107) mmol/L Carbon Dioxide (22-30) mmol/L Anion Gap (5-15) MEQ/L BUN (7-17) mg/dL Creatinine (0.52-1.04) mg/dL Estimated GFR ML/MIN Glucose (74-106) mg/dL POC Glucometer 110 H (74 to 106) mg/dL Calcium (8.4-10.2) mg/dL Magnesium (1.6-2.3) mg/dL Total Bilirubin (0.2-1.3) mg/dL AST (14-36) U/L ALT (0-35) U/L Alkaline Phosphatase (38-126) U/L Troponin I 0.516 H* (0.000-0.033) ng/mL Serum Total Protein (6.3-8.2) g/dL Albumin (3.5-5.0) g/dL Urine Color (Yellow) Urine Appearance (Clear) Urine pH (4.6-8.0) Ur Specific [place] (1.005-1.030) Urine Protein (Negative) Urine Glucose (UA) (Negative) mg/dL Urine Ketones (Negative) Urine Blood (Negative) Urine Nitrite (Negative) Urine Bilirubin (Negative) Urine Urobilinogen (0.2) mg/dL Ur Leukocyte Esterase (Negative) U Hyaline Cast (Auto) (0-2) /LPF Urine Microscopic RBC (0-5) /HPF Urine Microscopic WBC (0-5) /HPF Ur Epithelial Cells (None Seen) /HPF Urine Bacteria (None Seen) /HPF Urine Culture Reflexed (NO) Slides for Path Review Accuchecks Date 03/02/25 Time 16:50 - Radiology Impressions Radiology Exams & Impressions: Radiology Procedures Category Date Time Status HEAD WITHOUT CONTRAST [CT] Stat Exams 03/02/25 07:52 Completed - Other Procedures and Tests Respiratory Therapy 03/02/25 12:29 EKG REPEAT IN AM ELLA Encounter - ELLA Encounter Attestation ELLA Encounter Attestation: "VidhiavepersonallyseenandSORAIDA Mcdonnell andhavediscussed pertinent aspects of their care with Denise Childress agree with the history, physical exam (any modifications based on my personal exam will be noted below), assessment, and plan as outlined in original note. Please see immediately below for my summary of findings and additional assessment and plan along with any meaningful corrections/explanations to the Subjective/Objective portions of the ELLA note will be noted." My portion of the encounter took place via telemedicine. -Patient with history of atrial fibrillation, presenting with symptomatic RVR, slowed down without additional medication. Will monitor for recurrence, may change carvedilol to metoprolol to allow for more beta blockade. Patient not on anticoagulation and does not know why. Will need to follow up with her pt escort Dr. Ross to discuss anticoagulation. Positive trops are likely demand. Will trend to peak. Patient denies any chest pain.
[2025-03-02] MEDS ORDERED: Sodium Chloride 0.9% 1000 ML 1,000 ML IV SCH (12:29)
[2025-03-02] MEDS ORDERED: TYLENOL 325 MG PO PRN (12:29)
[2025-03-02] MEDS ORDERED: HUMULIN R SQ PRN (12:29)
[2025-03-02] MEDS ORDERED: HUMALOG SQ PRN (13:06)
[2025-03-02] MEDS ORDERED: Zofran 4 MG/2 ML VIAL IV PRN (13:06)
[2025-03-02 13:23] LABS: MAGNESIUM 1.8 mg/dL (1.6-2.3); Potassium 3.4 mmol/L (3.5-5.1)
[2025-03-02] MEDS: Klor Con PO SCH (15:56)
[2025-03-02] MEDS: Lidoderm Patch 5% TOP SCH (15:57)
[2025-03-02] MEDS ORDERED: ENTRESTO 49 MG-51 MG TABLET ONE (20:26)
[2025-03-02] MEDS: COREG 12.5 MG PO SCH (20:39)
[2025-03-02] MEDS: ENTRESTO 49 MG-51 MG TABLET PO SCH (20:39)
[2025-03-02] MEDS ORDERED: NON-FORMULARY ITEM (Sacubitril/Valsartan [Entresto 24 Mg-26 Mg Tablet] 1 EACH Tablet) PO SCH (22:00)
[2025-03-02] MEDS: GLUCOSAMINE SULFATE DIPOT CHLR 1000 MG PO SCH (22:15)
[2025-03-02] MEDS: NON-FORMULARY ITEM (Non-Formulary Drug [Non-Formulary Item] 1 EACH Each) PO SCH (22:15)
[2025-03-02] MEDS: VIT C PO SCH (22:16)
[2025-03-02] MEDS: LUTEIN PO SCH (22:16)
[2025-03-02] MEDS: ZINC PO SCH (22:16)
[2025-03-02] MEDS: [UNRECOGNIZED DRUG - OTHER] PO SCH (22:16)
[2025-03-02] MEDS: CUPERIC PO SCH (22:16)
[2025-03-02] MEDS: NORCO 5/325 MG PO PRN (22:36)
--- NOTE | 2025-03-03 05:20 | PCM.NOTE ---
Date and Time: 03/03/25513 Subjective Assessment: Ms. Chicas is an 84-year-old female with a history of type 2 diabetes mellitus, hypertension, hyperlipidemia, atrial fibrillation, systolic heart failure (EF ~40%), remote rheumatic fever, and prior transient ischemic attacks, who presented to the ED via EMS with acute-onset dizziness, diaphoresis, and left arm tingling. She was found to be in atrial fibrillation with rapid ventricular response (HR 180s), which partially improved with IV diltiazem. EKGs showed conversion from AFib with HR 116 and QTc 451 ms to sinus rhythm with PVCs and borderline T wave changes, QTc 508 ms. Troponins trended up slightly without ischemic EKG changes or chest pain, likely demand-related. She was hemodynamically stable throughout hospitalization with improved rate control on her home carvedilol. She will continue carvedilol and follow closely with her outpatient machine maintenance mechanic (Dr. Ross) to address anticoagulation, as she remains high risk (CHADS-VASc 9) and currently only on aspirin. Heart failure management included continuation of guideline-directed medical therapy (Entresto and carvedilol), with no need for acute diuresis. Outpatient echocardiogram is recommended to reassess EF and valvular function, given prior TTE from 2019. Her potassium was low on admission (3.1) and was repleted; she will continue oral potassium supplementation to maintain K+ >4.0. Mild dehydration was treated with 500 mL IV fluids; she is now euvolemic and encouraged to maintain oral hydration. Her non-contrast head CT showed no acute pathology but chronic white matter ischemia consistent with history of TIAs. She will continue aspirin at discharge. Blood pressure remained well controlled on home regimen, which is to be resumed. She is stable for discharge with outpatient follow-up.Cardiology (Dr. Ross) within 12 weeks to address anticoagulation and rhythm monitoring. Primary care within 1 week. Objective Data Vital Signs: Vital Signs - 24 hr Temp Pulse Resp BP BP Pulse Ox 03/03/25 04:00 97.3 F 81 16 177/75 92 L 03/03/25 00:00 97.4 F 89 20 182/76 94 L 03/02/25 19:37 97.6 F 84 20 200/81 94 L 03/02/25 16:00 97.9 F 77 16 140/62 96 03/02/25 14:32 97.6 F 78 21 168/88 97 03/02/25 12:29 97.6 F 78 21 168/88 97 03/02/25 12:00 84 27 H 165/59 97 03/02/25 11:30 77 18 172/58 97 03/02/25 11:00 76 16 157/62 98 03/02/25 10:54 98 03/02/25 10:30 74 19 152/54 96 03/02/25 10:00 68 22 141/63 97 03/02/25 09:30 70 25 H 145/54 95 03/02/25 09:07 77 17 147/62 96 03/02/25 09:03 96 03/02/25 08:30 84 139/69 95 03/02/25 08:00 132/68 96 03/02/25 07:30 97 F 150 H 19 125/55 98 Pain Assessment - Last Documented Pain Intensity 3 Pain Scale Used 0-10 Pain Scale Intake and Output: Intake & Output 02/28/25 03/01/25 03/02/25 03/03/25 11:59 11:59 11:59 11:59 Intake Total 1210 Output Total 400 Balance 810 Weight 69.6 kg 68.1 kg Lab Results: Lab Results-Last 24 Hours 03/02/25 03/02/25 03/02/25 Range/Units 07:50 07:50 07:50 WBC 5.6 (3.98-10.04) x10^3/uL RBC 4.71 (3.93-5.22) x10^6/uL Hgb 13.4 (11.2-15.7) g/dL Hct 42.7 (34.1-44.9) % MCV 90.7 (79.4-94.8) fL MCH 28.5 (25.6-32.2) pg MCHC 31.4 L (32.2-35.5) g/dL RDW 12.6 (11.7-14.4) % Plt Count 124 L (182-369) x10^3/uL MPV 12.4 H (9.4-12.3) fL Gran % 63.8 (34.0-71.1) % Immature Gran % (Auto) 0.2 (0.001-0.429) % Nucleat RBC Rel Count 0.0 (0.00-0.2) % Eos # (Auto) 0.09 (0.04-0.36) x10^3/uL Immature Gran # (Auto) 0.01 (0.001-0.031) x10^3u/L Absolute Lymphs (auto) 1.46 (1.18-3.74) x10^3/uL Absolute Monos (auto) 0.42 (0.24-0.86) x10^3/uL Absolute Nucleated RBC 0.00 (0.00-0.012) x10^3u/L Lymphocytes % 26.2 (19.3-51.7) % Monocytes % 7.5 (4.7-12.5) % Eosinophils % 1.6 (0.7-5.8) % Basophils % 0.7 (0.1-1.2) % Absolute Granulocytes 3.55 (1.56-6.13) x10^3/uL Basophils # 0.04 (0.01-0.08) x10^3/uL Sodium 143 (135-145) mmol/L Potassium 3.1 L (3.5-5.1) mmol/L Chloride 104 (98-107) mmol/L Carbon Dioxide 24 (22-30) mmol/L Anion Gap 18.0 H (5-15) MEQ/L BUN 16 (7-17) mg/dL Creatinine 0.84 (0.52-1.04) mg/dL Estimated GFR 68.9 ML/MIN Glucose 122 H (74-106) mg/dL POC Glucometer (74 to 106) mg/dL Calcium 9.6 (8.4-10.2) mg/dL Magnesium 1.6 (1.6-2.3) mg/dL Total Bilirubin 0.60 (0.2-1.3) mg/dL AST 30 (14-36) U/L ALT 15 (0-35) U/L Alkaline Phosphatase 68 (38-126) U/L Troponin I 0.021 (0.000-0.033) ng/mL Serum Total Protein 6.8 (6.3-8.2) g/dL Albumin 4.3 (3.5-5.0) g/dL Urine Color (Yellow) Urine Appearance (Clear) Urine pH (4.6-8.0) Ur Specific [place] (1.005-1.030) Urine Protein (Negative) Urine Glucose (UA) (Negative) mg/dL Urine Ketones (Negative) Urine Blood (Negative) Urine Nitrite (Negative) Urine Bilirubin (Negative) Urine Urobilinogen (0.2) mg/dL Ur Leukocyte Esterase (Negative) U Hyaline Cast (Auto) (0-2) /LPF Urine Microscopic RBC (0-5) /HPF Urine Microscopic WBC (0-5) /HPF Ur Epithelial Cells (None Seen) /HPF Urine Bacteria (None Seen) /HPF Urine Culture Reflexed (NO) Slides for Path Review YES 03/02/25 03/02/25 03/02/25 Range/Units 09:06 11:45 11:45 WBC (3.98-10.04) x10^3/uL RBC (3.93-5.22) x10^6/uL Hgb (11.2-15.7) g/dL Hct (34.1-44.9) % MCV (79.4-94.8) fL MCH (25.6-32.2) pg MCHC (32.2-35.5) g/dL RDW (11.7-14.4) % Plt Count (182-369) x10^3/uL MPV (9.4-12.3) fL Gran % (34.0-71.1) % Immature Gran % (Auto) (0.001-0.429) % Nucleat RBC Rel Count (0.00-0.2) % Eos # (Auto) (0.04-0.36) x10^3/uL Immature Gran # (Auto) (0.001-0.031) x10^3u/L Absolute Lymphs (auto) (1.18-3.74) x10^3/uL Absolute Monos (auto) (0.24-0.86) x10^3/uL Absolute Nucleated RBC (0.00-0.012) x10^3u/L Lymphocytes % (19.3-51.7) % Monocytes % (4.7-12.5) % Eosinophils % (0.7-5.8) % Basophils % (0.1-1.2) % Absolute Granulocytes (1.56-6.13) x10^3/uL Basophils # (0.01-0.08) x10^3/uL Sodium (135-145) mmol/L Potassium 3.4 L (3.5-5.1) mmol/L Chloride (98-107) mmol/L Carbon Dioxide (22-30) mmol/L Anion Gap (5-15) MEQ/L BUN (7-17) mg/dL Creatinine (0.52-1.04) mg/dL Estimated GFR ML/MIN Glucose (74-106) mg/dL POC Glucometer (74 to 106) mg/dL Calcium (8.4-10.2) mg/dL Magnesium 1.8 (1.6-2.3) mg/dL Total Bilirubin (0.2-1.3) mg/dL AST (14-36) U/L ALT (0-35) U/L Alkaline Phosphatase (38-126) U/L Troponin I 0.312 H* (0.000-0.033) ng/mL Serum Total Protein (6.3-8.2) g/dL Albumin (3.5-5.0) g/dL Urine Color Yellow (Yellow) Urine Appearance Clear (Clear) Urine pH 6.0 (4.6-8.0) Ur Specific [place] 1.015 (1.005-1.030) Urine Protein 30 (Negative) Urine Glucose (UA) Negative (Negative) mg/dL Urine Ketones 15 A (Negative) Urine Blood Small A (Negative) Urine Nitrite Negative (Negative) Urine Bilirubin Negative (Negative) Urine Urobilinogen 1.0 A (0.2) mg/dL Ur Leukocyte Esterase Negative (Negative) U Hyaline Cast (Auto) 3-5 A (0-2) /LPF Urine Microscopic RBC 6-10 A (0-5) /HPF Urine Microscopic WBC 0-2 (0-5) /HPF Ur Epithelial Cells None Seen (None Seen) /HPF Urine Bacteria None Seen (None Seen) /HPF Urine Culture Reflexed NO (NO) Slides for Path Review 03/02/25 03/02/25 03/02/25 Range/Units 16:04 16:16 19:00 WBC (3.98-10.04) x10^3/uL RBC (3.93-5.22) x10^6/uL Hgb (11.2-15.7) g/dL Hct (34.1-44.9) % MCV (79.4-94.8) fL MCH (25.6-32.2) pg MCHC (32.2-35.5) g/dL RDW (11.7-14.4) % Plt Count (182-369) x10^3/uL MPV (9.4-12.3) fL Gran % (34.0-71.1) % Immature Gran % (Auto) (0.001-0.429) % Nucleat RBC Rel Count (0.00-0.2) % Eos # (Auto) (0.04-0.36) x10^3/uL Immature Gran # (Auto) (0.001-0.031) x10^3u/L Absolute Lymphs (auto) (1.18-3.74) x10^3/uL Absolute Monos (auto) (0.24-0.86) x10^3/uL Absolute Nucleated RBC (0.00-0.012) x10^3u/L Lymphocytes % (19.3-51.7) % Monocytes % (4.7-12.5) % Eosinophils % (0.7-5.8) % Basophils % (0.1-1.2) % Absolute Granulocytes (1.56-6.13) x10^3/uL Basophils # (0.01-0.08) x10^3/uL Sodium (135-145) mmol/L Potassium 3.7 (3.5-5.1) mmol/L Chloride (98-107) mmol/L Carbon Dioxide (22-30) mmol/L Anion Gap (5-15) MEQ/L BUN (7-17) mg/dL Creatinine (0.52-1.04) mg/dL Estimated GFR ML/MIN Glucose (74-106) mg/dL POC Glucometer 171 H (74 to 106) mg/dL Calcium (8.4-10.2) mg/dL Magnesium (1.6-2.3) mg/dL Total Bilirubin (0.2-1.3) mg/dL AST (14-36) U/L ALT (0-35) U/L Alkaline Phosphatase (38-126) U/L Troponin I 0.501 H* (0.000-0.033) ng/mL Serum Total Protein (6.3-8.2) g/dL Albumin (3.5-5.0) g/dL Urine Color (Yellow) Urine Appearance (Clear) Urine pH (4.6-8.0) Ur Specific [place] (1.005-1.030) Urine Protein (Negative) Urine Glucose (UA) (Negative) mg/dL Urine Ketones (Negative) Urine Blood (Negative) Urine Nitrite (Negative) Urine Bilirubin (Negative) Urine Urobilinogen (0.2) mg/dL Ur Leukocyte Esterase (Negative) U Hyaline Cast (Auto) (0-2) /LPF Urine Microscopic RBC (0-5) /HPF Urine Microscopic WBC (0-5) /HPF Ur Epithelial Cells (None Seen) /HPF Urine Bacteria (None Seen) /HPF Urine Culture Reflexed (NO) Slides for Path Review 03/02/25 03/02/25 03/02/25 Range/Units 19:00 22:19 23:07 WBC (3.98-10.04) x10^3/uL RBC (3.93-5.22) x10^6/uL Hgb (11.2-15.7) g/dL Hct (34.1-44.9) % MCV (79.4-94.8) fL MCH (25.6-32.2) pg MCHC (32.2-35.5) g/dL RDW (11.7-14.4) % Plt Count (182-369) x10^3/uL MPV (9.4-12.3) fL Gran % (34.0-71.1) % Immature Gran % (Auto) (0.001-0.429) % Nucleat RBC Rel Count (0.00-0.2) % Eos # (Auto) (0.04-0.36) x10^3/uL Immature Gran # (Auto) (0.001-0.031) x10^3u/L Absolute Lymphs (auto) (1.18-3.74) x10^3/uL Absolute Monos (auto) (0.24-0.86) x10^3/uL Absolute Nucleated RBC (0.00-0.012) x10^3u/L Lymphocytes % (19.3-51.7) % Monocytes % (4.7-12.5) % Eosinophils % (0.7-5.8) % Basophils % (0.1-1.2) % Absolute Granulocytes (1.56-6.13) x10^3/uL Basophils # (0.01-0.08) x10^3/uL Sodium (135-145) mmol/L Potassium 4.4 (3.5-5.1) mmol/L Chloride (98-107) mmol/L Carbon Dioxide (22-30) mmol/L Anion Gap (5-15) MEQ/L BUN (7-17) mg/dL Creatinine (0.52-1.04) mg/dL Estimated GFR ML/MIN Glucose (74-106) mg/dL POC Glucometer 110 H (74 to 106) mg/dL Calcium (8.4-10.2) mg/dL Magnesium (1.6-2.3) mg/dL Total Bilirubin (0.2-1.3) mg/dL AST (14-36) U/L ALT (0-35) U/L Alkaline Phosphatase (38-126) U/L Troponin I 0.516 H* (0.000-0.033) ng/mL Serum Total Protein (6.3-8.2) g/dL Albumin (3.5-5.0) g/dL Urine Color (Yellow) Urine Appearance (Clear) Urine pH (4.6-8.0) Ur Specific [place] (1.005-1.030) Urine Protein (Negative) Urine Glucose (UA) (Negative) mg/dL Urine Ketones (Negative) Urine Blood (Negative) Urine Nitrite (Negative) Urine Bilirubin (Negative) Urine Urobilinogen (0.2) mg/dL Ur Leukocyte Esterase (Negative) U Hyaline Cast (Auto) (0-2) /LPF Urine Microscopic RBC (0-5) /HPF Urine Microscopic WBC (0-5) /HPF Ur Epithelial Cells (None Seen) /HPF Urine Bacteria (None Seen) /HPF Urine Culture Reflexed (NO) Slides for Path Review Radiology Exams: Radiology Procedures Category Date Time Status HEAD WITHOUT CONTRAST [CT] Stat Exams 03/02/25 07:52 Completed Medications: Medications Generic Name Dose Route Start Last Admin Trade Name Freq PRN Reason Stop Dose Admin Acetaminophen 650 mg 03/02/25 12:29 Acetaminophen 325 Mg Tablet PO 04/01/25 12:28 Q4H PRN PRN PAIN, FEVER, HEADACHE Hydrocodone Bitart/Acetaminophen 1 tab 03/02/25 13:08 03/02/25 22:36 Hydrocodone/Apap 5/325 1 Tab Tablet PO 03/07/25 13:07 1 tab QID PRN PRN Administration PAIN Carvedilol 12.5 mg 03/02/25 22:00 03/02/25 20:39 Carvedilol 12.5 Mg Tablet PO 04/01/25 21:59 12.5 mg BID HODA Administration Enoxaparin Sodium 40 mg 03/03/25 10:00 Enoxaparin Sodium 40 Mg/0.4 Ml Syringe SQ 04/02/25 09:59 DAILY HODA Furosemide 20 mg 03/03/25 10:00 Furosemide 40 Mg Tablet PO 04/02/25 09:59 DAILY HODA Insulin Human Lispro 0 unit 03/02/25 13:06 Insulin Lispro 1 Unit SQ 04/01/25 13:05 UD PRN HYPERGLYCEMIA Lidocaine 1 patch 03/02/25 15:30 03/02/25 15:57 Lidocaine Hcl 1 Patch Patch TOP 04/01/25 15:29 1 patch DAILY HODA Administration Loratadine 10 mg 03/03/25 10:00 Loratadine 10 Mg Tablet PO 04/02/25 09:59 DAILY HODA Non-Formulary Medication 1 each 03/02/25 22:00 03/02/25 22:26 Remove Patch 1 Each TOP 04/01/25 21:59 1 each HS HODA Administration Non-Formulary Medication 81 mg 03/03/25 10:00 Aspirin [Aspirin] PO 04/02/25 09:59 DAILY H[facility]A Non-Formulary Medication 200 mg 03/03/25 10:00 Ubidecarenone [Co Q-10] PO 04/02/25 09:59 DAILY [facility]A Non-Formulary Medication 1,000 mg 03/02/25 22:00 03/02/25 22:15 Glucosamine Sulfate Dipot Chlr [Glucosamine] PO 04/01/25 21:59 Not Given BID [facility]A Non-Formulary Medication 1 each 03/02/25 22:00 03/02/25 22:15 Non-Formulary Drug [Non-Formulary Item] PO 04/01/25 21:59 Not Given BID [facility]A Non-Formulary Medication 1 each 03/02/25 22:00 05/03/25 22:16 Vit C/E/Cuperic/Zinc/Lutein [Preservision Lutein Softgel] PO 04/01/25 21:59 Not Given BID [facility] Non-Formulary Medication 10 mg 03/03/25 10:00 Rosuvastatin Calcium [Rosuvastatin Calcium] PO 04/02/25 09:59 DAILY [facility] Ondansetron HCl 4 mg 03/02/25 13:06 Ondansetron Hcl 4 Mg/2 Ml Vial IV 04/01/25 13:05 Q6H PRN PRN NAUSEA/VOMITING Sacubitril/Valsartan 0.5 tablet 03/02/25 22:00 03/02/25 20:39 Sacubitril/Valsartan 1 Tablet Tablet PO 04/01/25 21:59 0.5 tablet BID HODA Administration Discontinued Medications Generic Name Dose Route Start Last Admin Trade Name Freq PRN Reason Stop Dose Admin Sodium Chloride 500 mls @ 50 mls/hr 03/02/25 09:45 03/02/25 11:14 Sodium Chloride 0.9% 500 Ml IV 04/01/25 09:44 50 mls/hr .Q10H H[facility]A Administration Sodium Chloride Confirm 03/02/25 11:11 Sodium Chloride 0.9% 500 Ml Administered 03/02/25 11:12 Dose 500 mls @ ud IV .STK-MED ONE Sodium Chloride 1,000 mls @ 50 mls/hr 03/02/25 12:29 Sodium Chloride 0.9% 1000 Ml IV 03/02/25 17:28 .Q20H [facility] Insulin Human Regular 0 unit 03/02/25 12:29 Insulin Regular, Human 1 Unit SQ 04/01/25 12:28 UD PRN HYPERGLYCEMIA Potassium Chloride 20 meq 03/02/25 08:30 03/02/25 08:33 Potassium Chloride Tab 10 Meq Tab PO 03/02/25 08:31 20 meq STAT ONE Administration Potassium Chloride Confirm 03/02/25 08:33 Potassium Chloride Tab 10 Meq Tab Administered 03/02/25 08:34 Dose 20 meq .ROUTE .STK-MED ONE Potassium Chloride 20 meq 03/02/25 15:00 03/02/25 20:39 Potassium Chloride Tab 10 Meq Tab PO 03/02/25 21:01 20 meq Q2H HODA Administration Sacubitril/Valsartan Confirm 03/02/25 20:26 Sacubitril/Valsartan 1 Tablet Tablet Administered 03/02/25 20:27 Dose 1 tablet .ROUTE .STK-MED ONE Assessment/Plan (1) Atrial fibrillation with RVR Current Visit: Yes Status: Acute Code(s): I48.91 - UNSPECIFIED ATRIAL FIBRILLATION (2) Systolic heart failure Current Visit: Yes Status: Acute Assessment & Plan: -Continue Entresto and carvedilol as prescribed. -Monitor for signs of fluid overload: swelling, weight gain >23 lbs in a day, or shortness of breath. -Keep a daily weight log and notify your provider for significant changes. -Schedule an outpatient with cardiology with possible echocardiogram to reassess heart function. -Follow sodium- and fluid-restricted diet as advised by your provider. Code(s): I50.20 - UNSPECIFIED SYSTOLIC (CONGESTIVE) HEART FAILURE (3) Hypokalemia Current Visit: Yes Status: Acute Assessment & Plan: -Potassium supplements as prescribed to maintain safe levels. Code(s): E87.6 - HYPOKALEMIA (4) Type 2 diabetes mellitus Current Visit: Yes Status: Acute Assessment & Plan: -Continue following an ADA (diabetic) diet. -Continue insulin or oral diabetes medications as directed. (5) HLD (hyperlipidemia) Current Visit: Yes Status: Acute Assessment & Plan: -continue statin Code(s): E78.5 - HYPERLIPIDEMIA, UNSPECIFIED (6) History of TIA (transient ischemic attack) Current Visit: Yes Status: Acute Assessment & Plan: -Continue aspirin 81 mg daily unless otherwise directed. Code(s): Z86.73 - PRSNL HX OF TIA (TIA), AND CEREB INFRC W/O RESID DEFICITS (7) Dehydration Current Visit: Yes Status: Acute Assessment & Plan: -resolved Code(s): E86.0 - DEHYDRATION (8) HTN (hypertension) Current Visit: Yes Status: Acute Assessment & Plan: -continue home meds Code(s): I10 - ESSENTIAL (PRIMARY) HYPERTENSION
[2025-03-03 05:24] LABS: Absolute Neutrophil Ct (ANC) 2.08 x10^3/uL (1.56-6.13); BASOPHIL % 0.7 % (0.1-1.2); Basophil (Absolute #) 0.03 x10^3/uL (0.01-0.08); Eosinophil % 3.2 % (0.7-5.8); Eosinophil (Absolute #) 0.13 x10^3/uL (0.04-0.36); Hematocrit 37.2 % (34.1-44.9); Hemoglobin 11.7 g/dL (11.2-15.7); IMMATURE GRAN # 0.01 x10^3u/L (0.001-0.031); IMMATURE GRAN % 0.2 % (0.001-0.429); Lymphocyte (Absolute #) 1.48 x10^3/uL (1.18-3.74); Lymphocytes % 36.1 % (19.3-51.7); Mean Cell Volume 90.7 fL (79.4-94.8); Mean Corpuscular Hemoglobin 28.5 pg (25.6-32.2); Mean Corpuscular Hgb Concent. 31.5 g/dL (32.2-35.5); Mean Platelet Volume 11.3 fL (9.4-12.3); Monocyte (Absolute #) 0.37 x10^3/uL (0.24-0.86); Neutrophil % 50.8 % (34.0-71.1); Platelet Count 120 x10^3/uL (182-369); White Blood Count 4.1 x10^3/uL (3.98-10.04)
[2025-03-03 05:55] LABS: ALBUMIN 3.7 g/dL (3.5-5.0); ANION GAP 11.7 MEQ/L (5-15); BILIRUBIN,TOTAL 0.5 mg/dL (0.2-1.3); Calcium 9.5 mg/dL (8.4-10.2); Creatinine 1 0.62 mg/dL (0.52-1.04); EST GLOMERULAR FILTRATION RATE 88.3 ML/MIN
[2025-03-03 08:02] LABS: Slide Review 1 YES
--- NOTE | 2025-03-03 09:10 | PCM.DS ---
Discharge Summary Date of Admission: 03/02/25 12:26 Date of Discharge: 03/03/25 Admitting Physician: KINZA PARIKH MD Primary Care Provider: ROD HOLLINGSWORTH Allergies Allergies No Known Drug Allergies Allergy (Verified 03/02/25 07:29) Hospital Summary - Hospital Course Hospital Course: Ms. Chicas is an 84-year-old female with a history of type 2 diabetes mellitus, hypertension, hyperlipidemia, atrial fibrillation, systolic heart failure (EF ~40%), remote rheumatic fever, and prior transient ischemic attacks, who presented to the ED via EMS with acute-onset dizziness, diaphoresis, and left arm tingling. She was found to be in atrial fibrillation with rapid ventricular response (HR 180s), which partially improved with IV diltiazem. EKGs showed conversion from AFib with HR 116 and QTc 451 ms to sinus rhythm with PVCs and borderline T wave changes, QTc 508 ms. Troponins trended up slightly without ischemic EKG changes or chest pain, likely demand-related. She was hemodynamically stable throughout hospitalization with improved rate control on her home carvedilol. 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 Ross). She remains high risk (CHADS-VASc 9) and currently only on aspirin. Patient will discharge home on Eliquis 5mg bid. Heart failure management included continuation of guideline-directed medical therapy (Entresto and carvedilol), with no need for acute diuresis. Outpatient echocardiogram is recommended to reassess EF and valvular function, given prior TTE from 2019. Her potassium was low on admission (3.1) and was repleted. Mild dehydration was treated with 500 mL IV fluids; she is now euvolemic and encouraged to maintain oral hydration. Her non-contrast head CT showed no acute pathology but chronic white matter ischemia consistent with history of TIAs. She will discontinue aspirin at discharge. Blood pressure remained well controlled on home regimen, which is to be resumed. She is stable for discharge with outpatient follow-up.Cardiology (Dr. Ross) within 12 weeks. Primary care within 1 week. Discharge Note New Diagnosis: AFIB RVR New Medications: Eliquis 5mg bid Follow Up: Cardiology/pcp I spent 35 minutes [id number] with the patient on the day of discharge performing discharge exam, discussing hospital stay and discharge instructions with patient and caregivers, preparation of discharge records, prescriptions & referral forms and addressing any questions/concerns the patient had as documented above. - Vitals & Intake/Output Vital Signs: Vital Signs Temperature 97.5 F 03/03/25 08:00 Pulse Rate 75 03/03/25 08:00 Respiratory Rate 20 03/03/25 08:00 Blood Pressure 185/75 03/03/25 08:00 O2 Sat by Pulse Oximetry 90 L 03/03/25 08:00 Intake & Output: Intake & Output 02/28/25 03/01/25 03/02/25 03/03/25 11:59 11:59 11:59 11:59 Intake Total 1210 Output Total 400 Balance 810 Weight 69.6 kg 70.2 kg - Lab Result Diagrams: 03/03/25 05:15 03/03/25 05:15 Lab Results-Last 24 Hrs: Lab Results-Last 24 Hours 03/02/25 03/02/25 03/02/25 Range/Units 07:50 09:06 11:45 WBC (3.98-10.04) x10^3/uL RBC (3.93-5.22) x10^6/uL Hgb (11.2-15.7) g/dL Hct (34.1-44.9) % MCV (79.4-94.8) fL MCH (25.6-32.2) pg MCHC (32.2-35.5) g/dL RDW (11.7-14.4) % Plt Count (182-369) x10^3/uL MPV (9.4-12.3) fL Gran % (34.0-71.1) % Immature Gran % (Auto) (0.001-0.429) % Nucleat RBC Rel Count (0.00-0.2) % Eos # (Auto) (0.04-0.36) x10^3/uL Immature Gran # (Auto) (0.001-0.031) x10^3u/L Absolute Lymphs (auto) (1.18-3.74) x10^3/uL Absolute Monos (auto) (0.24-0.86) x10^3/uL Absolute Nucleated RBC (0.00-0.012) x10^3u/L Lymphocytes % (19.3-51.7) % Monocytes % (4.7-12.5) % Eosinophils % (0.7-5.8) % Basophils % (0.1-1.2) % Absolute Granulocytes (1.56-6.13) x10^3/uL Basophils # (0.01-0.08) x10^3/uL Sodium (135-145) mmol/L Potassium (3.5-5.1) mmol/L Chloride (98-107) mmol/L Carbon Dioxide (22-30) mmol/L Anion Gap (5-15) MEQ/L BUN (7-17) mg/dL Creatinine (0.52-1.04) mg/dL Estimated GFR ML/MIN Glucose (74-106) mg/dL POC Glucometer (74 to 106) mg/dL Calcium (8.4-10.2) mg/dL Magnesium (1.6-2.3) mg/dL Total Bilirubin (0.2-1.3) mg/dL AST (14-36) U/L ALT (0-35) U/L Alkaline Phosphatase (38-126) U/L Troponin I 0.312 H* (0.000-0.033) ng/mL NT-Pro-B Natriuret Pep (<300) pg/mL Serum Total Protein (6.3-8.2) g/dL Albumin (3.5-5.0) g/dL Urine Color Yellow (Yellow) Urine Appearance Clear (Clear) Urine pH 6.0 (4.6-8.0) Ur Specific [place] 1.015 (1.005-1.030) Urine Protein 30 (Negative) Urine Glucose (UA) Negative (Negative) mg/dL Urine Ketones 15 A (Negative) Urine Blood Small A (Negative) Urine Nitrite Negative (Negative) Urine Bilirubin Negative (Negative) Urine Urobilinogen 1.0 A (0.2) mg/dL Ur Leukocyte Esterase Negative (Negative) U Hyaline Cast (Auto) 3-5 A (0-2) /LPF Urine Microscopic RBC 6-10 A (0-5) /HPF Urine Microscopic WBC 0-2 (0-5) /HPF Ur Epithelial Cells None Seen (None Seen) /HPF Urine Bacteria None Seen (None Seen) /HPF Urine Culture Reflexed NO (NO) Slides for Path Review YES 03/02/25 03/02/25 03/02/25 Range/Units 11:45 16:04 16:16 WBC (3.98-10.04) x10^3/uL RBC (3.93-5.22) x10^6/uL Hgb (11.2-15.7) g/dL Hct (34.1-44.9) % MCV (79.4-94.8) fL MCH (25.6-32.2) pg MCHC (32.2-35.5) g/dL RDW (11.7-14.4) % Plt Count (182-369) x10^3/uL MPV (9.4-12.3) fL Gran % (34.0-71.1) % Immature Gran % (Auto) (0.001-0.429) % Nucleat RBC Rel Count (0.00-0.2) % Eos # (Auto) (0.04-0.36) x10^3/uL Immature Gran # (Auto) (0.001-0.031) x10^3u/L Absolute Lymphs (auto) (1.18-3.74) x10^3/uL Absolute Monos (auto) (0.24-0.86) x10^3/uL Absolute Nucleated RBC (0.00-0.012) x10^3u/L Lymphocytes % (19.3-51.7) % Monocytes % (4.7-12.5) % Eosinophils % (0.7-5.8) % Basophils % (0.1-1.2) % Absolute Granulocytes (1.56-6.13) x10^3/uL Basophils # (0.01-0.08) x10^3/uL Sodium (135-145) mmol/L Potassium 3.4 L (3.5-5.1) mmol/L Chloride (98-107) mmol/L Carbon Dioxide (22-30) mmol/L Anion Gap (5-15) MEQ/L BUN (7-17) mg/dL Creatinine (0.52-1.04) mg/dL Estimated GFR ML/MIN Glucose (74-106) mg/dL POC Glucometer 171 H (74 to 106) mg/dL Calcium (8.4-10.2) mg/dL Magnesium 1.8 (1.6-2.3) mg/dL Total Bilirubin (0.2-1.3) mg/dL AST (14-36) U/L ALT (0-35) U/L Alkaline Phosphatase (38-126) U/L Troponin I 0.501 H* (0.000-0.033) ng/mL NT-Pro-B Natriuret Pep (<300) pg/mL Serum Total Protein (6.3-8.2) g/dL Albumin (3.5-5.0) g/dL Urine Color (Yellow) Urine Appearance (Clear) Urine pH (4.6-8.0) Ur Specific [place] (1.005-1.030) Urine Protein (Negative) Urine Glucose (UA) (Negative) mg/dL Urine Ketones (Negative) Urine Blood (Negative) Urine Nitrite (Negative) Urine Bilirubin (Negative) Urine Urobilinogen (0.2) mg/dL Ur Leukocyte Esterase (Negative) U Hyaline Cast (Auto) (0-2) /LPF Urine Microscopic RBC (0-5) /HPF Urine Microscopic WBC (0-5) /HPF Ur Epithelial Cells (None Seen) /HPF Urine Bacteria (None Seen) /HPF Urine Culture Reflexed (NO) Slides for Path Review 03/02/25 03/02/25 03/02/25 Range/Units 19:00 19:00 22:19 WBC (3.98-10.04) x10^3/uL RBC (3.93-5.22) x10^6/uL Hgb (11.2-15.7) g/dL Hct (34.1-44.9) % MCV (79.4-94.8) fL MCH (25.6-32.2) pg MCHC (32.2-35.5) g/dL RDW (11.7-14.4) % Plt Count (182-369) x10^3/uL MPV (9.4-12.3) fL Gran % (34.0-71.1) % Immature Gran % (Auto) (0.001-0.429) % Nucleat RBC Rel Count (0.00-0.2) % Eos # (Auto) (0.04-0.36) x10^3/uL Immature Gran # (Auto) (0.001-0.031) x10^3u/L Absolute Lymphs (auto) (1.18-3.74) x10^3/uL Absolute Monos (auto) (0.24-0.86) x10^3/uL Absolute Nucleated RBC (0.00-0.012) x10^3u/L Lymphocytes % (19.3-51.7) % Monocytes % (4.7-12.5) % Eosinophils % (0.7-5.8) % Basophils % (0.1-1.2) % Absolute Granulocytes (1.56-6.13) x10^3/uL Basophils # (0.01-0.08) x10^3/uL Sodium (135-145) mmol/L Potassium 3.7 (3.5-5.1) mmol/L Chloride (98-107) mmol/L Carbon Dioxide (22-30) mmol/L Anion Gap (5-15) MEQ/L BUN (7-17) mg/dL Creatinine (0.52-1.04) mg/dL Estimated GFR ML/MIN Glucose (74-106) mg/dL POC Glucometer 110 H (74 to 106) mg/dL Calcium (8.4-10.2) mg/dL Magnesium (1.6-2.3) mg/dL Total Bilirubin (0.2-1.3) mg/dL AST (14-36) U/L ALT (0-35) U/L Alkaline Phosphatase (38-126) U/L Troponin I 0.516 H* (0.000-0.033) ng/mL NT-Pro-B Natriuret Pep (<300) pg/mL Serum Total Protein (6.3-8.2) g/dL Albumin (3.5-5.0) g/dL Urine Color (Yellow) Urine Appearance (Clear) Urine pH (4.6-8.0) Ur Specific [place] (1.005-1.030) Urine Protein (Negative) Urine Glucose (UA) (Negative) mg/dL Urine Ketones (Negative) Urine Blood (Negative) Urine Nitrite (Negative) Urine Bilirubin (Negative) Urine Urobilinogen (0.2) mg/dL Ur Leukocyte Esterase (Negative) U Hyaline Cast (Auto) (0-2) /LPF Urine Microscopic RBC (0-5) /HPF Urine Microscopic WBC (0-5) /HPF Ur Epithelial Cells (None Seen) /HPF Urine Bacteria (None Seen) /HPF Urine Culture Reflexed (NO) Slides for Path Review 03/02/25 03/03/25 03/03/25 Range/Units 23:07 05:15 05:15 WBC 4.1 (3.98-10.04) x10^3/uL RBC 4.10 (3.93-5.22) x10^6/uL Hgb 11.7 (11.2-15.7) g/dL Hct 37.2 (34.1-44.9) % MCV 90.7 (79.4-94.8) fL MCH 28.5 (25.6-32.2) pg MCHC 31.5 L (32.2-35.5) g/dL RDW 13.0 (11.7-14.4) % Plt Count 120 L (182-369) x10^3/uL MPV 11.3 (9.4-12.3) fL Gran % 50.8 (34.0-71.1) % Immature Gran % (Auto) 0.2 (0.001-0.429) % Nucleat RBC Rel Count 0.0 (0.00-0.2) % Eos # (Auto) 0.13 (0.04-0.36) x10^3/uL Immature Gran # (Auto) 0.01 (0.001-0.031) x10^3u/L Absolute Lymphs (auto) 1.48 (1.18-3.74) x10^3/uL Absolute Monos (auto) 0.37 (0.24-0.86) x10^3/uL Absolute Nucleated RBC 0.00 (0.00-0.012) x10^3u/L Lymphocytes % 36.1 (19.3-51.7) % Monocytes % 9.0 (4.7-12.5) % Eosinophils % 3.2 (0.7-5.8) % Basophils % 0.7 (0.1-1.2) % Absolute Granulocytes 2.08 (1.56-6.13) x10^3/uL Basophils # 0.03 (0.01-0.08) x10^3/uL Sodium 144 (135-145) mmol/L Potassium 4.4 4.0 (3.5-5.1) mmol/L Chloride 110 H (98-107) mmol/L Carbon Dioxide 26 (22-30) mmol/L Anion Gap 11.7 (5-15) MEQ/L BUN 15 (7-17) mg/dL Creatinine 0.62 (0.52-1.04) mg/dL Estimated GFR 88.3 ML/MIN Glucose 127 H (74-106) mg/dL POC Glucometer (74 to 106) mg/dL Calcium 9.5 (8.4-10.2) mg/dL Magnesium (1.6-2.3) mg/dL Total Bilirubin 0.50 (0.2-1.3) mg/dL AST 23 (14-36) U/L ALT 10 (0-35) U/L Alkaline Phosphatase 50 (38-126) U/L Troponin I (0.000-0.033) ng/mL NT-Pro-B Natriuret Pep 2100 (<300) pg/mL Serum Total Protein 6.0 L (6.3-8.2) g/dL Albumin 3.7 (3.5-5.0) g/dL Urine Color (Yellow) Urine Appearance (Clear) Urine pH (4.6-8.0) Ur Specific [place] (1.005-1.030) Urine Protein (Negative) Urine Glucose (UA) (Negative) mg/dL Urine Ketones (Negative) Urine Blood (Negative) Urine Nitrite (Negative) Urine Bilirubin (Negative) Urine Urobilinogen (0.2) mg/dL Ur Leukocyte Esterase (Negative) U Hyaline Cast (Auto) (0-2) /LPF Urine Microscopic RBC (0-5) /HPF Urine Microscopic WBC (0-5) /HPF Ur Epithelial Cells (None Seen) /HPF Urine Bacteria (None Seen) /HPF Urine Culture Reflexed (NO) Slides for Path Review YES 03/03/25 03/03/25 03/03/25 Range/Units 05:15 05:15 06:55 WBC (3.98-10.04) x10^3/uL RBC (3.93-5.22) x10^6/uL Hgb (11.2-15.7) g/dL Hct (34.1-44.9) % MCV (79.4-94.8) fL MCH (25.6-32.2) pg MCHC (32.2-35.5) g/dL RDW (11.7-14.4) % Plt Count (182-369) x10^3/uL MPV (9.4-12.3) fL Gran % (34.0-71.1) % Immature Gran % (Auto) (0.001-0.429) % Nucleat RBC Rel Count (0.00-0.2) % Eos # (Auto) (0.04-0.36) x10^3/uL Immature Gran # (Auto) (0.001-0.031) x10^3u/L Absolute Lymphs (auto) (1.18-3.74) x10^3/uL Absolute Monos (auto) (0.24-0.86) x10^3/uL Absolute Nucleated RBC (0.00-0.012) x10^3u/L Lymphocytes % (19.3-51.7) % Monocytes % (4.7-12.5) % Eosinophils % (0.7-5.8) % Basophils % (0.1-1.2) % Absolute Granulocytes (1.56-6.13) x10^3/uL Basophils # (0.01-0.08) x10^3/uL Sodium (135-145) mmol/L Potassium (3.5-5.1) mmol/L Chloride (98-107) mmol/L Carbon Dioxide (22-30) mmol/L Anion Gap (5-15) MEQ/L BUN (7-17) mg/dL Creatinine (0.52-1.04) mg/dL Estimated GFR ML/MIN Glucose (74-106) mg/dL POC Glucometer 103 (74 to 106) mg/dL Calcium (8.4-10.2) mg/dL Magnesium 1.9 (1.6-2.3) mg/dL Total Bilirubin (0.2-1.3) mg/dL AST (14-36) U/L ALT (0-35) U/L Alkaline Phosphatase (38-126) U/L Troponin I 0.310 H* (0.000-0.033) ng/mL NT-Pro-B Natriuret Pep (<300) pg/mL Serum Total Protein (6.3-8.2) g/dL Albumin (3.5-5.0) g/dL Urine Color (Yellow) Urine Appearance (Clear) Urine pH (4.6-8.0) Ur Specific [place] (1.005-1.030) Urine Protein (Negative) Urine Glucose (UA) (Negative) mg/dL Urine Ketones (Negative) Urine Blood (Negative) Urine Nitrite (Negative) Urine Bilirubin (Negative) Urine Urobilinogen (0.2) mg/dL Ur Leukocyte Esterase (Negative) U Hyaline Cast (Auto) (0-2) /LPF Urine Microscopic RBC (0-5) /HPF Urine Microscopic WBC (0-5) /HPF Ur Epithelial Cells (None Seen) /HPF Urine Bacteria (None Seen) /HPF Urine Culture Reflexed (NO) Slides for Path Review Micro Results-Entire Visit: Accuchecks Date 03/03/25 Date 03/02/25 Time 07:25 Time 16:50 - Radiology Exams Ordered Rad Exams-Entire Visit: Radiology Procedures Category Date Time Status HEAD WITHOUT CONTRAST [CT] Stat Exams 03/02/25 07:52 Completed - Procedures and Test Procedures and Tests throughout Hospitalization: Therapy Orders & Screens 03/02/25 12:29 EKG REPEAT IN AM Comment: 03/02/25 13:15 EKG STAT Comment: increasing troponin Diagnosis: AFIB 03/02/25 15:08 ST Screen per Nursing Assess ONCE Comment: Protocol Order Physician Instructions: Greater than [address] Admission Screening Reason For Exam: Triggered on Admission Diagnosis: AFIB CVA/Dysphagia/Aphasia: No Cognitive Deficits: No Dehydration/Nutrition Deficit: Yes Reflux: No Oral-Motor Difficulties: No Pneumonia: No Assisted Resident: No Total Points: 5 03/02/25 17:36 EKG STAT Comment: troponins trending up Diagnosis: AFIB EKG Reason: Other Discharge Exam General Appearance: no apparent distress Neurologic Exam: alert, oriented x 3, cooperative Eye Exam: PERRL Ears, Nose, Throat Exam: normal ENT inspection Neck Exam: normal inspection Respiratory Exam: normal breath sounds, lungs clear Cardiovascular Exam: regular rate/rhythm, normal heart sounds, normal peripheral pulses Gastrointestinal/Abdomen Exam: soft, normal bowel sounds Pelvic Exam: deferred Rectal Exam: deferred Back Exam: normal inspection Extremity Exam: normal inspection Skin Exam: normal color Final Diagnosis/Problem List - Final Discharge Diagnosis/Problem (1) Atrial fibrillation with RVR Current Visit: Yes Status: Acute Assessment & Plan: -HR controlled -Initial EKG showed atrial fibrillation with a ventricular rate of 116 bpm and a QTc of 451 ms without evidence of acute ischemia. A repeat EKG showed conversion to sinus rhythm with premature ventricular complexes, borderline T wave changes, and a QTc of 508 ms -Continue beta-amita therapy home carvediolol to maintain heart rate within target range -Anticoagulation: chads-VASc score 9; Eliquis 5mg bid initiated -Follows OP with Dr. Ross -Echo from March 2020 showed left ventricular hypokinesia with an estimated EF of 40%, mild to moderate mitral regurgitation, mild aortic regurgitation, trace tricuspid regurgitation with RVSP of 24 mmHg, concentric left ventricular hypertrophy, and diastolic dysfunction (2) Systolic heart failure Current Visit: Yes Status: Acute Assessment & Plan: -Continue Entresto and carvedilol as prescribed. -Monitor for signs of fluid overload: swelling, weight gain >23 lbs in a day, or shortness of breath. -Keep a daily weight log and notify your provider for significant changes. -Schedule an outpatient with cardiology with possible echocardiogram to reassess heart function. -Follow sodium- and fluid-restricted diet as advised by your provider. Code(s): I50.20 - UNSPECIFIED SYSTOLIC (CONGESTIVE) HEART FAILURE (3) Hypokalemia Current Visit: Yes Status: Acute Assessment & Plan: -Potassium supplements as prescribed to maintain safe levels. Code(s): E87.6 - HYPOKALEMIA (4) Type 2 diabetes mellitus Current Visit: Yes Status: Acute Assessment & Plan: -Continue following an ADA (diabetic) diet. -Continue insulin or oral diabetes medications as directed. (5) HLD (hyperlipidemia) Current Visit: Yes Status: Acute Assessment & Plan: -continue statin Code(s): E78.5 - HYPERLIPIDEMIA, UNSPECIFIED (6) History of TIA (transient ischemic attack) Current Visit: Yes Status: Acute Assessment & Plan: -Discontinue aspirin 81 mg daily Code(s): Z86.73 - PRSNL HX OF TIA (TIA), AND CEREB INFRC W/O RESID DEFICITS (7) Dehydration Current Visit: Yes Status: Acute Assessment & Plan: -resolved Code(s): E86.0 - DEHYDRATION (8) HTN (hypertension) Current Visit: Yes Status: Acute Assessment & Plan: -continue home meds Code(s): I48.91 - UNSPECIFIED ATRIAL FIBRILLATION (2) Systolic heart failure Current Visit: Yes Status: Acute Code(s): I50.20 - UNSPECIFIED SYSTOLIC (CONGESTIVE) HEART FAILURE (3) Hypokalemia Current Visit: Yes Status: Acute Code(s): E87.6 - HYPOKALEMIA (4) Type 2 diabetes mellitus Current Visit: Yes Status: Acute (5) HLD (hyperlipidemia) Current Visit: Yes Status: Acute Code(s): E78.5 - HYPERLIPIDEMIA, UNSPECIFIED (6) History of TIA (transient ischemic attack) Current Visit: Yes Status: Acute Code(s): Z86.73 - PRSNL HX OF TIA (TIA), AND CEREB INFRC W/O RESID DEFICITS (7) Dehydration Current Visit: Yes Status: Acute Code(s): E86.0 - DEHYDRATION (8) HTN (hypertension) Current Visit: Yes Status: Acute Code(s): I10 - ESSENTIAL (PRIMARY) HYPERTENSION - Discharge Discharge Date: 03/03/25 Disposition: Home, Self-Care Condition: Fair Prescriptions: New Apixaban [Eliquis 2.5 mg Tablet] 5 mg PO BID 30 Days #60 tablet Continue Carvedilol 12.5 mg [Coreg 12.5 mg] 12.5 mg PO BID Loratadine 10 mg [Claritin 10 mg] 10 mg PO DAILY Glucosamine Sulfate Dipot Chlr [Glucosamine] 1,000 mg PO BID Acetaminophen 325 mg [Tylenol 325 mg] 650 mg PO Q8H PRN PRN PRN Reason: Pain And/Or Fever Rosuvastatin Calcium 10 mg PO DAILY Sacubitril/Valsartan [Entresto 24 mg-26 mg Tablet] 1 tab PO BID Vit C/E/Cuperic/Zinc/Lutein [Preservision Lutein Softgel] 1 each PO BID Metformin HCl 500 mg [Glucophage 500 MG] 500 mg PO BIDWM Furosemide [Lasix] See Rx Instructions .ROUTE .COMPLEX Ubidecarenone [Co Q-10] 200 mg PO DAILY Non-Formulary Drug [Non-Formulary Item] 1 each PO BID Discontinued Aspirin 81 mg PO DAILY Follow up with: ROD HOLLINGSWORTH [Primary Care Provider, [facility]]
[2025-03-03] MEDS ORDERED: NON-FORMULARY ITEM (Ubidecarenone [Co Q-10] 200 MG Capsule) PO SCH (10:00)
[2025-03-03] MEDS ORDERED: NON-FORMULARY ITEM (Aspirin [Aspirin] 81 MG Tablet) PO SCH (10:00)
[2025-03-03] MEDS ORDERED: ECOTRIN 81 MG PO SCH (10:00)
[2025-03-03] MEDS ORDERED: ENOXAPARIN SODIUM SQ SCH (10:00)
[2025-03-03] MEDS ORDERED: NON-FORMULARY ITEM (Rosuvastatin Calcium [Rosuvastatin Calcium] 10 MG Tablet) PO SCH (10:00)
[2025-03-03] MEDS ORDERED: Lasix 40 MG PO SCH (10:00)
[2025-03-03] MEDS ORDERED: MEDICATION INTERVENTION MC SCH ×3 (10:15)
[2025-03-03] MEDS: LASIX 20 MG PO SCH (10:16)
[2025-03-03] MEDS: ELIQUIS 2.5 MG TABLET PO SCH (10:16)
[2025-03-03] MEDS: CLARITIN 10 MG PO SCH (10:16)
[2025-03-03] MEDS: ZOCOR 20MG PO SCH (10:17)
[2025-03-03 12:16] VITALS: BP 183/77; PULSE 77; RESP 18; TEMP 97.1; O2SAT 93
== END 2025-03-03 13:01 | disposition home or self-care (01) ==
LOC: ED 07:25 → MED SURG 12:26
PROVIDERS: ADMIT Internal Medicine; ATTEND Internal Medicine
DX: I48.20 Chronic atrial fibrillation, unspecified (principal); E11.9 Type 2 diabetes mellitus without complications; E78.5 Hyperlipidemia, unspecified; I11.0 Hypertensive heart disease with heart failure; I50.20 Unspecified systolic (congestive) heart failure; E86.0 Dehydration; R42 Dizziness and giddiness; E87.6 Hypokalemia; Z86.73 Personal history of transient ischemic attack (TIA), and cerebral infarction without residual deficits; Z79.899 Other long term (current) drug therapy
CPT/HCPCS: 36415; 70450; 80053; 81001; 82947; 83735; 83880; 84132; 84484; 85025; 93005; 93041; 93268; 99291; G0378; Q3014; 99284; A9270-GY